=== PATIENT | female | born 1960 | race Two or more races ===

== ENCOUNTER 2020-08-25 11:37 | Inpatient (IN) | payer MEDICAID, OTHER ==
[~2020-08-25] VITALS: Ht 160 cm; Wt 71.6 kg
[2020-08-25] VITALS (31 sets, daily range): BP systolic 97–118; BP diastolic 60–77
[2020-08-25] MEDS: PROPOFOL 100 ML IV SCH ×2 (11:56→20:53)
[2020-08-25] MEDS ORDERED: PROPOFOL 100 ML IV ONE (11:56)
[2020-08-25 12:13] LABS: Basophils # (auto) 0.1 10 ^3/uL (0-0.2); Hemoglobin 12.2 g/dL (12.2-16.2); Neutrophils # (auto) 6.2 10 ^3/uL (1.6-8.6); Nucleated Red Blood Cells % 0.1 %
[2020-08-25 12:15] LABS: Eosinophils # (auto) 0.2 10 ^3/uL (0-0.8); Eosinophils % (auto) 1.9 % (0.0-7.0); Hematocrit 39.6 % (36.0-46.0); Lymphocytes # (auto) 5.6 10 ^3/uL (0.4-5.4); Lymphocytes % (auto) 44.7 % (10.0-50.0); Mean Corpuscular Hemoglobin 28.7 pg (28.0-32.0); Mean Corpuscular Hgb Conc. 30.7 g/dL (32.0-36.0); Mean Corpuscular Volume 93.5 fL (80.0-100.0); Monocytes # (auto) 0.4 10 ^3/uL (0-1.3); Monocytes % (auto) 3.3 % (0.0-12.0); Neutrophils % (auto) 49.1 % (37.0-80.0); Platelet Count (auto) 399 10^3/uL (140-450); Red Blood Cells 4.23 10^6/uL (4.0-5.20); White Blood Cell 12.6 10^3/uL (4.4-10.8)
[2020-08-25] MEDS ORDERED: LORazepam 2MG/ML-1ML VIAL IV ONE (12:15)
[2020-08-25 12:29] LABS: INR 1.07 (0.9-1.15); Partial Thromboplastin Time 28.9 sec (23.0-31.2)
[2020-08-25 12:32] LABS: Urine Bacteria FEW /hpf (None Seen); Urine Blood 1+ /uL (Negative); Urine Mucus FEW (None Seen); Urine Specific Gravity 1.019 (1.001-1.035); Urine WBC 6 /hpf (0 - 5)
[2020-08-25] MEDS ORDERED: MIDAZOLAM DRIP 50 mg/50mL 50 ML IV ONE (12:34)
[2020-08-25] MEDS ORDERED: AZITHROMYCIN 500MG/ 250ML 250 ML IV ONE (12:45)
[2020-08-25 12:47] LABS: Albumin 2.6 g/dL (3.4-5.0); Calcium 8.1 mg/dL (8.5-10.1); Magnesium 2.7 mg/dL (1.6-2.6); Potassium 3.8 mmol/L (3.5-5.1)
[2020-08-25 12:53] LABS: BUN/Creatinine Ratio 10.7; Bilirubin, Total 0.2 mg/dL (0.2-1.0); CRP High Sensitivity 0.5 mg/dL (< 0.3); Total Protein 6.2 g/dL (6.4-8.2)
[2020-08-25 13:02] LABS: Lactic Acid w/Reflex 10.3 mmol/L (0.4-2.0)
[2020-08-25] MEDS ORDERED: IOHEXOL 350 MG/ML 100ML IJ ONE (13:02)
[2020-08-25] MEDS: MIDAZOLAM DRIP 50 mg/50mL 50 ML IV SCH ×2 (13:04→20:52)
[2020-08-25] MEDS ORDERED: NOREPINEPHRINE 8 MG/250ML KIT 250 ML IV SCH (13:15)
[2020-08-25] MEDS ORDERED: NITROGLYCERIN 0.4 MG SL TAB SL PRN (13:15)
[2020-08-25] MEDS ORDERED: PIPERACILLIN-TAZOB 3.375GM 100 ML IV ONE (13:15)
[2020-08-25] MEDS ORDERED: MORPHINE SULFATE 4 MG/ML SYR/VIAL IV PRN (13:15)
[2020-08-25] MEDS ORDERED: VANCOMYCIN PER PHARMACY 0 MG IV SCH (13:15)
[2020-08-25] MEDS ORDERED: LACTATED RINGER'S 1,000 ML IV ONE (13:15)
[2020-08-25] MEDS ORDERED: MORPHINE SULF INJ 2 MG/ML SYRINGE 1ML IV PRN (13:15)
[2020-08-25] MEDS ORDERED: ENOXAPARIN SOD 100 MG/1 ML SYRINGE SC ONE ×2 (14:00→14:15)
[2020-08-25] MEDS: NOREPINEPHRINE 8 MG/250ML KIT 250 ML IV SCH (14:00)
[2020-08-25] MEDS ORDERED: DEXTROSE (50%) 50ML SYRG IV PRN (14:00)
--- NOTE | 2020-08-25 14:20 | NUR ---
Respiratory note: RETRACTED ETT 3CM, FROM 24 @ THE LIP LINE, TO 21 AT THE LIP LINE. PER DR FRANCISCA HERNANDEZ. RN AWARE.
[2020-08-25] MEDS ORDERED: methylPREDNISolone SOD SUCC 125 MG/2 ML VL IV ONE (14:30)
[2020-08-25] MEDS ORDERED: VANCOMYCIN 1GM/250ML 250 ML IV ONE (15:30)
--- NOTE | 2020-08-25 17:00 | NUR ---
Pt being admitted to ICU JORGE MUNOZ admitted to ICU via gurney on melter helper, and portable 02. Patient transferred to bed, connected to ICU monitoring and oxygen, and weighed by bed scale. Patient oriented to ZBIGNIEW TANNER, primary RN, unit, room, bed, and unit policies regarding patient care and visiting hours. UPDATED NEICE ON PATIENTS CURRENT STATUS.
[2020-08-25] MEDS: ACCU-CHEK COMFORT CURVE STRIP VI SCH ×2 (17:11→23:41)
[2020-08-25] MEDS: InsuLIN REG 1unit/0.01ml Soln (100units/ml) SC SCH ×2 (17:11→23:42)
[2020-08-25] MEDS: FUROSEMIDE 20 MG/2 ML VIAL IV SCH (17:14)
[2020-08-25] MEDS: PIPERACILLIN-TAZOB 3.375GM 100 ML IV SCH ×2 (17:14→23:30)
--- NOTE | 2020-08-25 18:56 | NUR ---
UNABLE TO COMPLETE ADMISSION IN IT'S ENTIRETY DUE TO PATIENT BEING ON A VENTILATOR AND HAVING NO CLOSE FAMILY/CHILDREN. PATIENT DOES HAVE A NIECE WHO DOESN'T KNOW 100% OF FAMILIAL DETAILS.
--- NOTE | 2020-08-25 19:05 | NUR ---
Report received from JORGE Guillermo. Propofol drip infusing at 9.861 mcg/kg/min; Versed drip infusing at 13 mg/hr. Patient intubated with ETT 7.5 at 21 CM at L/L to vent. Vent settings: AC 18 Vt 450 FiO2 50% PEEP 5. Will continue with POC; and, will contine to monitor VS, RASS -3, and clinical status.
--- NOTE | 2020-08-25 20:00 | NUR ---
UDS & MRSA swab collected and specimens sent to lab.
[2020-08-25 20:47] LABS: Urine Bacteria FEW /hpf (None Seen); Urine Blood Negative /uL (Negative); Urine Mucus FEW (None Seen); Urine Specific Gravity 1.016 (1.001-1.035); Urine WBC 2 /hpf (0 - 5)
--- NOTE | 2020-08-25 20:50 | NUR ---
Versed drip changed to new bag and resumed at 13 mg/hr, Versed bottle bar code did not scan; also, Propofol drip changed to new bottle and resumed at 9.861 mcg/kg/min.
[2020-08-25 21:03] LABS: Amphetamine Screen, Urine POSITIVE (NEGATIVE); Barbiturate Scree,Urine NEGATIVE (NEGATIVE); Benzodiazephine Screen, Urine POSITIVE (NEGATIVE); Cocaine Screen, Urine NEGATIVE (NEGATIVE); Phencyclidine Screen, Urine NEGATIVE (NEGATIVE)
[2020-08-25 21:10] LABS: Cannabinoid Screen, Urine NEGATIVE (NEGATIVE); Opiate Scree,Urine NEGATIVE (NEGATIVE)
[2020-08-25] MEDS: methylPREDNISolone SOD SUCC 40 MG/ML VL IV SCH (22:04)
[2020-08-25] MEDS: FAMOTIDINE (10MG/ML) 2ML VL IV SCH (22:04)
[2020-08-25] MEDS: ENOXAPARIN SOD 100 MG/1 ML SYRINGE SC SCH (22:05)
--- NOTE | 2020-08-25 22:05 | NUR ---
Rtn scheduled medications given. See e-MAR.
--- NOTE | 2020-08-25 23:30 | NUR ---
Rtn scheduled medications given. See e-MAR. Signed: 08/25/20 at 2331 by Ritesh Ochoa RN
--- NOTE | 2020-08-25 23:42 | NUR ---
Accucheck 122 mg/dl. No coverage indicated.
[2020-08-26] VITALS (104 sets, daily range): BP systolic 88–124; BP diastolic 52–74
--- NOTE | 2020-08-26 | NUR ---
Versed drip increase to 15 mg/hr due to patient over-riding vent 19-22 BPM; also, patient attempting to open eyes.
--- NOTE | 2020-08-26 00:05 | NUR ---
RT decrease FiO2 to 30%.
--- NOTE | 2020-08-26 01:10 | NUR ---
Propofol drip increase to 15.85 mcg/kg/min due to patient over-riding ventilator 20-22 BPM.
[2020-08-26] MEDS: MIDAZOLAM DRIP 50 mg/50mL 50 ML IV SCH ×3 (01:26→16:35)
--- NOTE | 2020-08-26 01:26 | NUR ---
Versed drip changed to new bag and resumed infusion to 15 mg/hr.
--- NOTE | 2020-08-26 01:40 | NUR ---
Propofol drip increase to 20.84 mcg/kg/min due to patient RR 28-30 BPM.
--- NOTE | 2020-08-26 02:44 | NUR ---
Traffic Or System Dispatcher at bedside. AM Labs collected and specimens sent to lab.
--- NOTE | 2020-08-26 03:10 | NUR ---
Patient incontinent with moderate semi-soft brown stool. Patient given bed bath and linen change.
[2020-08-26] MEDS: methylPREDNISolone SOD SUCC 40 MG/ML VL IV SCH (05:32)
[2020-08-26] MEDS: PIPERACILLIN-TAZOB 3.375GM 100 ML IV SCH ×4 (05:32→23:33)
[2020-08-26] MEDS: FUROSEMIDE 20 MG/2 ML VIAL IV SCH ×2 (05:33→17:24)
--- NOTE | 2020-08-26 05:33 | NUR ---
Rtn scheduled medications given. See e-MAR.
[2020-08-26] MEDS: InsuLIN REG 1unit/0.01ml Soln (100units/ml) SC SCH ×4 (05:43→23:54)
[2020-08-26] MEDS: ACCU-CHEK COMFORT CURVE STRIP VI SCH ×4 (05:43→23:54)
--- NOTE | 2020-08-26 05:44 | NUR ---
Accucheck 122 mg/dl. No coverage indicated.
--- NOTE | 2020-08-26 05:50 | NUR ---
Versed drip changed to new bag.
[2020-08-26 09:27] LABS: Basophils # (auto) 0 10 ^3/uL (0-0.2); Basophils % (auto) 0.1 % (0.0-2.0); Eosinophils # (auto) 0 10 ^3/uL (0-0.8); Hematocrit 36.5 % (36.0-46.0); Hemoglobin 11.8 g/dL (12.2-16.2); Lymphocytes # (auto) 0.6 10 ^3/uL (0.4-5.4); Mean Corpuscular Hemoglobin 28.6 pg (28.0-32.0); Mean Corpuscular Hgb Conc. 32.4 g/dL (32.0-36.0); Mean Corpuscular Volume 88.3 fL (80.0-100.0); Monocytes # (auto) 0.2 10 ^3/uL (0-1.3); Monocytes % (auto) 1.1 % (0.0-12.0); Neutrophils # (auto) 13.9 10 ^3/uL (1.6-8.6); Neutrophils % (auto) 94.8 % (37.0-80.0); Platelet Count (auto) 420 10^3/uL (140-450); Red Blood Cells 4.13 10^6/uL (4.0-5.20); Red Cell Distribution Width 15.3 % (11.8-14.3); White Blood Cell 14.6 10^3/uL (4.4-10.8)
--- NOTE | 2020-08-26 09:32 | NUR ---
MEDICAL LABORATORY SCIENTIST AT BEDSIDE.
[2020-08-26 09:40] LABS: Calcium 8.3 mg/dL (8.5-10.1); Potassium 3.6 mmol/L (3.5-5.1)
[2020-08-26 09:43] LABS: BUN/Creatinine Ratio 16.2; Bilirubin, Total 0.5 mg/dL (0.2-1.0); Total Protein 6.6 g/dL (6.4-8.2)
[2020-08-26] MEDS ORDERED: VANCOMYCIN 1GM/250ML 250 ML IV SCH (10:00)
[2020-08-26] MEDS: ENOXAPARIN SOD 100 MG/1 ML SYRINGE SC SCH ×2 (10:50→21:44)
--- NOTE | 2020-08-26 12:00 | NUR ---
WOUND CARE NOTE: IN TO SEE PATIENT AT THIS TIME PER WOUND CARE CONSULT REQUEST. PATIENT ADMITTED TO [facility] WITH DIAGNOSIS OF S/P CARDIAC ARREST. SHE IS INTUBATED, SEDATED IN [place]. PATIENT RESTING ON ICU [facility] BED. PATIENT NOTED UPON ADMIT, TO HAVE MULTIPLE SKIN INTEGRITY ISSUES. WOUND PHOTOS TAKEN BY BEDSIDE NURSE AT THAT TIME, AND AGAIN AT THIS TIME BY WOUND CARE TEAM. CURRENT OMKAR SCORE IS 10. PATIENT NOTED TO HAVE MULTIPLE WOUNDS, INCLUDING 3 SMALL BLOOD FILLED BLISTERS TO THE LEFT EAR, RIGHT LOWER CHEEK INTACT ABRASION, LESION/GROWTH TO FOREHEAD, MULTIPLE INTACT COLLAGEN SCARS TO BACK, ABDOMEN, BLE. NO OPEN/DRAINING WOUNDS NOTED, NO DRESSINGS NEEDED. RECOMMEND: FREQUENT TURN SCHEDULE Q 2 HOURS, PRN CONDITION PERMITS, WITH PRESSURE REDISTRIBUTION USING PILLOWS/WEDGES, BID/PRN APPLICATION WITH MOISTURE BARRIER CREAM, OPTIFOAM GENTLE SACRAL DRESSING, DIETARY CONSULT, SKIN/WOUND CARE PLAN, CONTINUED MONITORING BY WOUND CARE TEAM. Addendum: 08/26/20 at 1809 by Nelsy Hidalgo RN Amended: Links added.
--- NOTE | 2020-08-26 12:12 | NUR ---
Nutrition Assessment/Consult Notes Please refer to link for full assessment notes. Est Energy needs: 1636-3898 kcals (20-23 kcal/kgBW) Est Protein needs: 59-74 gms/day (0.8-1.0 gm/kgBW) Will continue to monitor and reassess prn. Addendum: 08/26/20 at [address] Amended: Links added.
[2020-08-26] MEDS: NOREPINEPHRINE 8 MG/250ML KIT 250 ML IV SCH (13:13)
[2020-08-26 15:37] LABS: Basophils # (auto) 0 10 ^3/uL (0-0.2); Basophils % (auto) 0.1 % (0.0-2.0); Eosinophils # (auto) 0 10 ^3/uL (0-0.8); Hematocrit 37.4 % (36.0-46.0); Hemoglobin 12.1 g/dL (12.2-16.2); Lymphocytes % (auto) 5.5 % (10.0-50.0); Mean Corpuscular Hemoglobin 28.7 pg (28.0-32.0); Mean Corpuscular Hgb Conc. 32.4 g/dL (32.0-36.0); Mean Corpuscular Volume 88.6 fL (80.0-100.0); Monocytes # (auto) 0.6 10 ^3/uL (0-1.3); Monocytes % (auto) 3.3 % (0.0-12.0); Neutrophils % (auto) 91.1 % (37.0-80.0); Platelet Count (auto) 395 10^3/uL (140-450); Red Blood Cells 4.22 10^6/uL (4.0-5.20); Red Cell Distribution Width 15.7 % (11.8-14.3); White Blood Cell 18.7 10^3/uL (4.4-10.8)
[2020-08-26] MEDS: PROPOFOL 100 ML IV SCH (16:36)
--- NOTE | 2020-08-26 18:14 | NUR ---
Respiratory note: RECEIVED PT ON VENT([id number]). PT IS ETT TO VENT. VENT PLUGGED INTO RED OUTLET AND O2 SOURCE ALARMS ARE SET AND AUDIBLE. AMBU BAG AND MASK AT BEDSIDE. BS ARE FINE COURSE SXD VIA ETT FOR MODERATE THICK GARCIA/SCANT BLOOD TINGE. NO GAG NOTED WITH SX. ETT MOVED FROM LEFT TO CENTER WITHOUT INCIDENT. ETT CONFIRMED TO BE A 7.0 SECURED AT 21CMS AT THE LIP. PTS CURRENT TEMP READS 99.1F. RT NAME AND PAGER ASSIGNMENT WRITTEN ON PTS ROOM BOARD. WILL CONTINUE TO MONITOR Q2H VENT CHECKS AND PRN.
--- NOTE | 2020-08-26 19:07 | NUR ---
Report received from JORGE Murray. Patient intubate with ETT 7.0 to vent. Vent settings: AC 18 Vt 450 FiO2 30% PEEP 5. IVF: Versed drip at 5 mg/hr. Diprivan drip at 9.996 mcg/kg/min. Will continue with POC; and, will continue to monitor VS, RASS -3, and clinical status.
[2020-08-26] MEDS: Jevity 1.2 Cal/Fiber 1 Liter GT SCH (20:00)
--- NOTE | 2020-08-26 20:00 | NUR ---
Tube Feedings started. Jevity 1.2 Christiano started at 20 ml/hr.
--- NOTE | 2020-08-26 20:20 | NUR ---
Respiratory note: AT BEDSIDE FOR ROUTINE VENT CHECK, CURRENT TEMP IS 99.7F. NO SX DONE AT THIS TIME. NO CHANGES MADE WILL CONTINUE TO MONITOR.
[2020-08-26] MEDS: FAMOTIDINE (10MG/ML) 2ML VL IV SCH (21:44)
[2020-08-26] MEDS: LINEZOLID 600MG/300ML 300 ML IV SCH (21:44)
--- NOTE | 2020-08-26 21:45 | NUR ---
Rtn scheduled medications given. See e-MAR.
--- NOTE | 2020-08-26 22:05 | NUR ---
Respiratory note: AT BEDSIDE FOR ROUTINE VENT CHECK, CURRENT TEMP IS 100.2F. NO SX DONE AT THIS TIME. NO CHANGES MADE WILL CONTINUE TO MONITOR.
--- NOTE | 2020-08-26 23:34 | NUR ---
Rtn scheduled medication given. See e-MaR.
--- NOTE | 2020-08-26 23:49 | NUR ---
Accucheck 124 mg/dl. No coverage required.
[2020-08-27] VITALS (67 sets, daily range): BP systolic 115–149; BP diastolic 57–91
--- NOTE | 2020-08-27 00:28 | NUR ---
Respiratory note: AT BEDSIDE FOR ROUTINE VENT CHECK, CURRENT TEMP IS 100.2F. BS ARE COURSE BILATERALLY, SXD VIA ETT FOR MODERATE AMOUNT OF THICK GARCIA/ PINK TINGED. NO CHANGES MADE WILL CONTINUE TO MONITOR.
--- NOTE | 2020-08-27 00:50 | NUR ---
Temperature 100.6 and HR 142. Cooling measures applied. Ice packs applied to Nuchal, Bilateral Axillary, and Groin areas. Addendum: 08/27/20 at 0053 by Ritesh Ochoa RN Skin hot too touch.
[2020-08-27] MEDS: ACETAMINOPHEN 325 MG TAB PO PRN ×4 (01:54→22:20)
--- NOTE | 2020-08-27 01:55 | NUR ---
Patient medicated with Tylenol 650 mg via NGT for Temperature 100.6.
--- NOTE | 2020-08-27 02:00 | NUR ---
Tube feeding off for CPAP trials this am.
--- NOTE | 2020-08-27 02:02 | NUR ---
Respiratory note: AT BEDSIDE FOR ROUTINE VENT CHECK, CURRENT TEMP IS 100.4F. COOLING MEASURES BEING TAKEN JORGE MEDINA AT BEDSIDE AND COMMUNICATED TYLENOL WAS GIVEN. NO CHANGES MADE WILL CONTINUE TO MONITOR.
--- NOTE | 2020-08-27 02:38 | NUR ---
Tooth Cutter Contact Wheel at bedside. AM Labs collected and specimens sent to lab.
--- NOTE | 2020-08-27 03:38 | NUR ---
Patient HR 1207-133, RR 26-28. Patient medicated with Morphine 2 mg IVP.
[2020-08-27 03:56] LABS: Basophils # (auto) 0 10 ^3/uL (0-0.2); Basophils % (auto) 0.1 % (0.0-2.0); Eosinophils # (auto) 0 10 ^3/uL (0-0.8); Hematocrit 36.4 % (36.0-46.0); Hemoglobin 11.8 g/dL (12.2-16.2); Lymphocytes # (auto) 1.5 10 ^3/uL (0.4-5.4); Lymphocytes % (auto) 8.6 % (10.0-50.0); Mean Corpuscular Hemoglobin 28.4 pg (28.0-32.0); Mean Corpuscular Hgb Conc. 32.3 g/dL (32.0-36.0); Monocytes % (auto) 5.5 % (0.0-12.0); Neutrophils # (auto) 15.3 10 ^3/uL (1.6-8.6); Neutrophils % (auto) 85.8 % (37.0-80.0); Nucleated Red Blood Cells % 0.1 %; Platelet Count (auto) 409 10^3/uL (140-450); Red Blood Cells 4.13 10^6/uL (4.0-5.20); Red Cell Distribution Width 15.5 % (11.8-14.3); White Blood Cell 17.9 10^3/uL (4.4-10.8)
[2020-08-27 04:07] LABS: Calcium 8.7 mg/dL (8.5-10.1); Potassium 3.7 mmol/L (3.5-5.1)
--- NOTE | 2020-08-27 05:24 | NUR ---
Patient bathed with linen change.
[2020-08-27] MEDS: FUROSEMIDE 20 MG/2 ML VIAL IV SCH ×2 (05:41→16:54)
[2020-08-27] MEDS: PIPERACILLIN-TAZOB 3.375GM 100 ML IV SCH ×4 (05:41→23:06)
--- NOTE | 2020-08-27 05:42 | NUR ---
Rtn scheduled medication given. See e-MAR.
[2020-08-27] MEDS: InsuLIN REG 1unit/0.01ml Soln (100units/ml) SC SCH ×4 (06:00→23:06)
[2020-08-27] MEDS: ACCU-CHEK COMFORT CURVE STRIP VI SCH ×4 (06:00→23:06)
--- NOTE | 2020-08-27 06:01 | NUR ---
Accucheck 78 mg/dl. No coverage indicated.
[2020-08-27] MEDS: MIDAZOLAM DRIP 50 mg/50mL 50 ML IV SCH (06:33)
--- NOTE | 2020-08-27 06:34 | NUR ---
Versed dripbag changed tonew bag.
--- NOTE | 2020-08-27 06:53 | NUR ---
Versed drip decrease to 3 mg/hr. Will attempt to titrate sedation drips off for CPAP trials.
--- NOTE | 2020-08-27 07:45 | NUR ---
Cooling Measures applied. Patient currently has temp of 100.4 , cooling measures in place.
--- NOTE | 2020-08-27 08:00 | NUR ---
COMPLETED LINEN CHANGE PERFORMED. SKIN CARE PERFORMED. PT TOLERATED WELL. SEE PHYSICAL ASSESSMENT. TUBE FEEDINGS REMAIN ON HOLD FOR POSSIBLE CPAP TRIAL. Addendum: 08/27/20 at 1154 by Terri Whittaker RN ABNORMALITIES SEEN TO VAGINAL AREA. POSSIBLY PROLAPSED UTERUS OR BLADDER. AWAITING MD TO ROUND TO DETERMINE ABNORMALITY.
[2020-08-27] MEDS: LINEZOLID 600MG/300ML 300 ML IV SCH ×2 (09:31→21:00)
[2020-08-27] MEDS: ENOXAPARIN SOD 100 MG/1 ML SYRINGE SC SCH ×2 (09:31→21:02)
--- NOTE | 2020-08-27 11:00 | NUR ---
Family updated on pt status Family of JORGE MUNOZ updated on patient's status and condition. All questions and concerns addressed. Coni Kraus verbalized understanding. Nayana stating patient is homeless but at times visits Nayana for a few nights a week to shower and then shortly after leaves. Nayana stating patient does not have a primary doctor that she follows up with. Nayana verbalized the last time she was discharged from [place] hospital [place], patient was d.c and arranged to stay with Nayana but shortly after patient left to a friends house. Questions and concerns addressed.
--- NOTE | 2020-08-27 11:37 | NUR ---
ALL SEDATION OFF AT 0800./ 08/27. POSSIBLE CPAP TRIAL. PATIENT WITHDRAWS TO PAIN, ONLY OPENS EYES TO STIMULI WITH ONLY SCLERA VISUALIZED. NOT TRACKING. NO FOLLOWING COMMANDS. Addendum: 08/27/20 at 1140 by Terri Whittaker RN Amended: Links added.
--- NOTE | 2020-08-27 12:00 | NUR ---
rounds Dr. Kent updated on patients status. Md aware patient is off sedation. If patient does not wake up today neuro consult to be placed. See md orders. Addendum: 08/27/20 at 1518 by Terri Whittaker RN MD aware of abnormality noted during pericare. Md stating it is likely prolapsed uterus. No further orders.
[2020-08-27] MEDS: NOREPINEPHRINE 8 MG/250ML KIT 250 ML IV SCH (13:30)
[2020-08-27] MEDS: DexMEDEtomidine 400 MCG in D5W 5% 96 ML IV SCH (13:30)
[2020-08-27] MEDS: IPRATROPIUM BROM 0.5 MG/2.5ML INH SOL NEB SCH ×3 (13:45→22:46)
[2020-08-27] MEDS: ALBUTEROL SULF 2.5 MG/0.5ML(0.5%) NEB SOLN NEB SCH ×3 (13:45→22:46)
--- NOTE | 2020-08-27 14:00 | NUR ---
Nutrition Tube feedings restarted at 20ml/hr as patient is not responding at this time for cpap trial to be initiated. Aspiration precautions in place.
--- NOTE | 2020-08-27 15:48 | NUR ---
NO CPAP TRIAL ATTEMPTED DUE TO PATIENT NOT BEING ABLE TO FOLLOW COMMANDS. WILL NOTIFY AND RN.
--- NOTE | 2020-08-27 16:07 | NUR ---
Cooling Measures applied. Patient currently has temp of 101.3 , cooling measures in place, prn Tylenol given.
[2020-08-27] MEDS: Jevity 1.2 Cal/Fiber 1 Liter GT SCH (16:17)
--- NOTE | 2020-08-27 16:56 | NUR ---
TUBE FEEDINGS TF TOLERATED WELL. 5ML OF GASTRIC RESIDUAL. RATE INCREASED TO 35ML/HR. ASPIRATION PRECAUTIONS REMAIN IN PLACE.
--- NOTE | 2020-08-27 18:55 | NUR ---
Respiratory note: RECEIVED PT ON VENT([id number]). PT IS ETT TO VENT. VENT PLUGGED INTO RED OUTLET AND O2 SOURCE ALARMS ARE SET AND AUDIBLE. AMBU BAG AND MASK AT BEDSIDE. BS ARE FINE COURSE SXD VIA ETT FOR SMALL THICK GARCIA. GAG INTACT. MED NEB TX GIVEN INLINE WITHOUT ADVERSE REACTION NOTED. ETT CONFIRMED TO BE A 7.0 SECURED AT 21CMS AT THE LIP. PTS CURRENT TEMP READS 100.6F. RT NAME AND PAGER ASSIGNMENT WRITTEN ON PTS ROOM BOARD. WILL CONTINUE TO MONITOR Q2H VENT CHECKS AND PRN.
--- NOTE | 2020-08-27 19:16 | NUR ---
REPORT GIVEN TO NOC SHIFT UPDATED ON PLAN OF CARE. PATIENTS VSS. TOLERATING VENTILATOR WELL.
--- NOTE | 2020-08-27 20:00 | NUR ---
SHIFT OPENING NOTE RECEIVED PATIENT INTUBATED. SEDATION OFF. PUPILS 3 AND SLUGGISH. VENT SETTINGS 7.0, 21 AT THE LIP AC 18, TV 450, FI02 30%, PEEP 5 POX 96%. RIGHT NG TUBE INFUSING JEVITY AT 35 ML/H. 10 ML RESIDUALS NOTED. (GOAL IS 55 ML/H). ANDRADE CATH DRAINING CLOUDY YELLOW URINE TO GRAVITY. PHYSICAL ASSESSMENT COMPLETED, SEE INTERVENTIONS. WILL CLOSELY MONITOR.
--- NOTE | 2020-08-27 20:30 | NUR ---
Respiratory note: AT BEDSIDE FOR ROUTINE VENT CHECK. PTS CURRENT TEMP READS 100.9F. NO CHANGES MADE WILL CONTINUE TO MONITOR.
[2020-08-27] MEDS: FAMOTIDINE (10MG/ML) 2ML VL IV SCH (21:02)
--- NOTE | 2020-08-27 22:40 | NUR ---
COOLING MEASURES REAPPLIED RECTAL TEMP 100.9. TYLENOL ADMINISTERED AND ICE PACKS REAPPLIED UNDER ARMPITS AND WET COLD CLOTH OF FOREHEAD.
--- NOTE | 2020-08-27 22:45 | NUR ---
TRAINING EXECUTIVE AT BEDSIDE
--- NOTE | 2020-08-27 23:20 | NUR ---
REPORT GIVEN TO JAUN Dee RN WILL TAKE OVER CARE OF PATIENT.
[2020-08-28] VITALS (92 sets, daily range): BP systolic 130–183; BP diastolic 71–108
--- NOTE | 2020-08-28 00:30 | NUR ---
PT. ARRIVED IN ICU BED #101; PT. NOTED TO HAVE VOMITUS IN BED AND ON GOWN; LT. UPPER CHEST NOTED TO BE LARGER/SWOLLEN MORE THAN RT. UPPER CHEST AND WILL OBTAIN CXR NOW TO R/O PNEUMOTHORAX; PT. IS S/P CPR FROM 08/25/20; PLACED PT. ON BEDSIDE MONITOR; PT. INTUBATED/VENTILATED-OFF SEDATION SINCE 0800 ON 08/27/20-AWAITING FOR PT. TO WAKE UP; PT. IS NOTED TO HAVE DOLL EYE PRESENTATION TO BOTH EYES; PT. DOES HAVE COUGH AND GAG INTACT; TUBE FEED RESIDUAL NOTED IN OGT WITH 60ML RESIDUAL AND PLACED ON LOW-WALL INTERMITTENT SUCTION; PLACED MITTENS ON HANDS A SAFETY PRECAUTION; SEE INTERVENTIONS FOR ASSESSMENT; VS STABLE AT THIS TIME; PT. NOT ON ANY DRIPS-PIV X2 BOTH PATENT AND SALINE LOCKED; WILL CONT. TO MONITOR.
--- NOTE | 2020-08-28 00:38 | NUR ---
SPOKE WITH NEWS GATHERING TECHNICIAN CHRIS ABOUT STAT PLAN COORDINATOR SAID HE WILL BE HERE SOON
[2020-08-28] MEDS: ALBUTEROL SULF 2.5 MG/0.5ML(0.5%) NEB SOLN NEB SCH ×7 (02:00→22:00)
[2020-08-28] MEDS: IPRATROPIUM BROM 0.5 MG/2.5ML INH SOL NEB SCH ×6 (02:37→22:00)
--- NOTE | 2020-08-28 02:37 | NUR ---
Respiratory note: AT BEDSIDE FOR ROUTINE VENT CHECK. GREEN SIZE 8.0 OPA PLACED IN ORAL CAVITY DUE TO PT BITING ON TONGUE. RN JAUN AT BEDSIDE AND AWARE OF PLACEMENT. PTS HR INCREASED AT 140S, ALBUTEROL HELD. ATROVENT ADMINISTERED ONLY. MED NEB TX GIVEN INLINE WITHOUT ADVERSE REACTION NOTED. NO CHANGES MADE WILL CONTINUE TO MONITOR.
--- NOTE | 2020-08-28 02:38 | NUR ---
ALBUTEROL HELD DUE TO INCREASED HR. 140S. JORGE MARIE.
[2020-08-28 04:26] LABS: Basophils # (auto) 0 10 ^3/uL (0-0.2); Basophils % (auto) 0.2 % (0.0-2.0); Eosinophils # (auto) 0 10 ^3/uL (0-0.8); Eosinophils % (auto) 0.1 % (0.0-7.0); Hematocrit 38.9 % (36.0-46.0); Hemoglobin 12.7 g/dL (12.2-16.2); Lymphocytes % (auto) 14.1 % (10.0-50.0); Mean Corpuscular Hemoglobin 28.6 pg (28.0-32.0); Mean Corpuscular Hgb Conc. 32.8 g/dL (32.0-36.0); Mean Corpuscular Volume 87.3 fL (80.0-100.0); Monocytes % (auto) 6.9 % (0.0-12.0); Neutrophils # (auto) 11.3 10 ^3/uL (1.6-8.6); Neutrophils % (auto) 78.7 % (37.0-80.0); Platelet Count (auto) 439 10^3/uL (140-450); Red Blood Cells 4.45 10^6/uL (4.0-5.20); Red Cell Distribution Width 15.6 % (11.8-14.3); White Blood Cell 14.4 10^3/uL (4.4-10.8)
[2020-08-28 04:33] LABS: BUN/Creatinine Ratio 14.5; Calcium 9.1 mg/dL (8.5-10.1)
[2020-08-28 04:35] LABS: Potassium 2.9 mmol/L (3.5-5.1)
[2020-08-28] MEDS ORDERED: POTASSIUM CHL 20MEQ/100ML 100 ML IV ONE (05:27)
[2020-08-28] MEDS: POTASSIUM CHL 20MEQ/100ML 100 ML IV SCH ×3 (05:30→09:20)
[2020-08-28] MEDS: PIPERACILLIN-TAZOB 3.375GM 100 ML IV SCH ×3 (06:00→17:45)
[2020-08-28] MEDS: FUROSEMIDE 20 MG/2 ML VIAL IV SCH ×2 (06:00→17:46)
[2020-08-28] MEDS: InsuLIN REG 1unit/0.01ml Soln (100units/ml) SC SCH ×3 (06:00→18:00)
[2020-08-28] MEDS: ACCU-CHEK COMFORT CURVE STRIP VI SCH ×3 (06:00→17:46)
[2020-08-28] MEDS ORDERED: MAGNESIUM SULFATE 1GM/100ML 100 ML IV ONE ×2 (07:00→07:06)
--- NOTE | 2020-08-28 07:15 | NUR ---
Assumed care of pt., report received per JORGE Rodríguez. pt. noted in SVT/ST 160's, aware per NOC RN. Noted vented and tolerating, will cont.to monitor for any changes, assessment ongoing.
[2020-08-28] MEDS: ENOXAPARIN SOD 100 MG/1 ML SYRINGE SC SCH ×2 (09:24→22:16)
[2020-08-28] MEDS: LINEZOLID 600MG/300ML 300 ML IV SCH ×2 (09:24→22:16)
--- NOTE | 2020-08-28 10:46 | NUR ---
Nutrition Followup Notes Wt: 70.4 kg Pt was intubated sedated with no family by bedside. pt is currently NPO on EN feeds with Jevity 1.2 @ 35 ml/hr providing 1008 kcals and 46 gm proteins. pt with inadequate EN support Est Energy needs: 5294-7463 kcals (20-23 kcal/kgBW), Est Protein needs: 59-74 gms/day (0.8-1.0 gm/kgBW). Will continue to monitor and reassess prn. LABS: CREAT 1.17 H ALB 3.0 L, GLU 131 H GI: Pt with no BM today Last BM unknown per RN doc BS: 11 high risk. Refer to wound assessment report for full details. PES: 1) Increased nutrient needs aeb pt is sedated, intubated, NPO r/t pt with no PO intake 2) Overweight aeb 141% IBW and BMI of 28.7 kg/m2 r/t energy intake in excess of energy needs Comments: will continue to monitor NPO status, EN tolerance skin status. F/u high 2-3 days Rec: 1) Advance EN support with Jevity 1.2 @ 55ml/hr goal rate per MD approval. 2) Gradually advance pt to an oral Cardiac 2gNa,lowfat,lowchol diet when feasible per MD approval. 3) Continue current plan of care
--- NOTE | 2020-08-28 11:50 | NUR ---
RT Transport Note: Patient transported to RADIOLOGY FOR HEAD CT with JORGE DEWITT. Patient transported on color television console monitor and transport vent with alarms set and audible. Patient returned to room and placed back on ventilator with previous settings. Transport completed without incident.
[2020-08-28] MEDS: PROPOFOL 100 ML IV SCH (12:15)
--- NOTE | 2020-08-28 12:23 | NUR ---
WOUND CARE NOTE: WOUND CARE IN TO SEE PATIENT FOR NEW CONCERN. BEDSIDE NURSE NOTED PATIENT TO HAVE A PROLAPSED UTERUS. PHOTOGRAPH TAKEN FOR REFERENCE. UTERUS COVERED WITH SALINE SOAKED STERILE GAUZE 4x4s TO KEEP TISSUE MOIST. RECOMMEND: BUSINESS APPLICATIONS SPECIALIST CONSULT. FREQUENT DRESSING CHANGE TO PROLAPSE WITH SALINE SOAKED STERILE GAUZE 4x4s TO KEEP TISSUE MOIST. CONTINUED MONITORING BY WOUND CARE TEAM. Addendum: 08/28/20 at 1342 by LUIZ DELGADO RN RN Amended: Links added.
[2020-08-28] MEDS: MIDAZOLAM DRIP 50 mg/50mL 50 ML IV SCH (12:45)
[2020-08-28] MEDS: DexMEDEtomidine 400 MCG in D5W 5% 96 ML IV SCH (13:30)
[2020-08-28] MEDS: NOREPINEPHRINE 8 MG/250ML KIT 250 ML IV SCH (15:34)
--- NOTE | 2020-08-28 18:15 | NUR ---
Respiratory note: RECEIVED PT ON VENT ([id number]). VENT CONNECTED TO RED OUTLET AND O2 SOURCE ALARMS ARE SET AND AUDIBLE AMBU BAG AND MASK AT BED. MED NEB TX GIVEN INLINE WITHOUT ADVERSE REACTION NOTED JORGE DEWITT AT BEDSIDE PERFORMING CARES. RT NAME AND PAGER ASSIGNMENT WRITE ON PTS ROOM BOARD WILL CONTINUE TO MONITOR.
--- NOTE | 2020-08-28 19:10 | NUR ---
No distress noted, pt. report given to JORGE Rodriguez. Care of pt assumed per NOC RN, day shift RN relinquished care and signed off.
--- NOTE | 2020-08-28 20:01 | NUR ---
Respiratory note: AT BEDSIDE FOR ROUTINE VENT CHECK NO VENT CHANGES MADE. JORGE KUO AT BEDSIDE COMMUNICATING FINDINGS. OPA STILL IN PLACE DUE TO PT BITING. PT OPENS EYES BUT EYES REMAIN ROLLED BACK. GAG AND SOME FACIAL GRIMACING WITH SX NOTED.
--- NOTE | 2020-08-28 20:30 | NUR ---
COOLING MEASURES TEMP 99.8 AXILLARY APPLIED ICE PACKS TO BILATERALLY AXILLA AND BEHIND NECK, DAMP CLOTH ON FOREHEAD.
--- NOTE | 2020-08-28 20:50 | NUR ---
PATIENT NOTED TO HAVE SINUS TACHY (140'S) WITH PAC'S IMPLEMENTED COOLING MEASURES AND TYLENOL. (T 99.8 RIGHT AXILLARY) PATIENT SELF CONVERTED FROM SINUS TACHY (140 BPM) TO SINUS RHYTHM IN (80 BPM) WILL CONTINUE TO MONITOR.
[2020-08-28] MEDS: ACETAMINOPHEN 325 MG TAB PO PRN (20:53)
--- NOTE | 2020-08-28 22:00 | NUR ---
Respiratory note: at bedside for routine vent check. no changes made med neb tx given inline without adverse reaction noted. Albuterol held due to hr in 130s. Atrovent given only at this time. will communicated to JORGE Brady. RN at bedside performing ekg. will continue to monitor.
--- NOTE | 2020-08-28 22:09 | NUR ---
OBTAINED 12 LED ECG UNUSUAL P AXIS, POSSIBLE ECTOPIC ATRIAL TACHYCARDIA NONSPECIFIC ST ABNORMALITY FILED ECG IN PATIENTS FOLDER TEMP 99.8 ORAL ADDITIONAL COOLING MEASURES: DECREASED ROOM TEMP, FAN, APPLIED DAMP CLOTH BILATERAL LOWER EXTREMITIES. PATIENT CONVERTED TO SINUS RHYTHM AT 2223 (HR IN LOW 80'S, SHE WAS AT HR 142)
[2020-08-28] MEDS: FAMOTIDINE (10MG/ML) 2ML VL IV SCH (22:16)
[2020-08-29] VITALS (88 sets, daily range): BP systolic 123–178; BP diastolic 73–108
[2020-08-29] MEDS: PIPERACILLIN-TAZOB 3.375GM 100 ML IV SCH ×5 (00:31→23:59)
--- NOTE | 2020-08-29 00:50 | NUR ---
PAGED HOSPITALIST REGARDING HIGH BP SYSTOLIC BP RANGES BETWEEN 140 AND 170 LATEST BP IS 176/105
--- NOTE | 2020-08-29 00:56 | NUR ---
RECEIVED NEW ORDERS FROM HOSPITALIST REGARDING HIGH BP LABETALOL 10MB IV ONCE
[2020-08-29] MEDS ORDERED: LABETALOL HCL 5 MG/ML 4ML SYRINGE IV ONE (01:00)
[2020-08-29] MEDS: IPRATROPIUM BROM 0.5 MG/2.5ML INH SOL NEB SCH ×6 (02:15→22:20)
[2020-08-29] MEDS: ALBUTEROL SULF 2.5 MG/0.5ML(0.5%) NEB SOLN NEB SCH ×6 (02:15→22:20)
[2020-08-29 03:19] LABS: Basophils # (auto) 0.1 10 ^3/uL (0-0.2); Basophils % (auto) 0.7 % (0.0-2.0); Eosinophils # (auto) 0.1 10 ^3/uL (0-0.8); Eosinophils % (auto) 1.2 % (0.0-7.0); Hematocrit 37.6 % (36.0-46.0); Lymphocytes # (auto) 1.3 10 ^3/uL (0.4-5.4); Lymphocytes % (auto) 12.6 % (10.0-50.0); Mean Corpuscular Hgb Conc. 34.4 g/dL (32.0-36.0); Mean Corpuscular Volume 87.1 fL (80.0-100.0); Monocytes # (auto) 0.9 10 ^3/uL (0-1.3); Monocytes % (auto) 9.1 % (0.0-12.0); Neutrophils # (auto) 7.7 10 ^3/uL (1.6-8.6); Neutrophils % (auto) 76.4 % (37.0-80.0); Platelet Count (auto) 390 10^3/uL (140-450); Red Blood Cells 4.32 10^6/uL (4.0-5.20); Red Cell Distribution Width 15.4 % (11.8-14.3); White Blood Cell 10.1 10^3/uL (4.4-10.8)
[2020-08-29 03:38] LABS: BUN/Creatinine Ratio 11.9; Calcium 8.5 mg/dL (8.5-10.1)
--- NOTE | 2020-08-29 04:30 | NUR ---
CARES FULL BED LINEN CHANGE, DID CARES ON PROLAPSED UTERUS ACCORDING TO WOUND CARE INSTRUCTIONS. PLACED NEW OPTIFOAM. TOLERATED TURNS WELL, DOES NOT FOLLOW INSTRUCTIONS, PUPILS 3MM AND BRISK, EYES ARE POINTING UP AT ALL TIMES, OPENS HER EYE LIDS TO LIGHT TOUCH. NO EXTREMITY MOVEMENTS NOTED.
[2020-08-29] MEDS: ACCU-CHEK COMFORT CURVE STRIP VI SCH ×4 (06:00→18:14)
[2020-08-29] MEDS: InsuLIN REG 1unit/0.01ml Soln (100units/ml) SC SCH ×4 (06:00→18:00)
--- NOTE | 2020-08-29 06:14 | NUR ---
Respiratory note: RECEIVED PATIENT ON RENTAL V200 VENT, ORALLY INTUBATED WITH A 7.0 ETT SECURED VIA CARL AT THE 21CM MARKING AT THE LIP, AND MECHANICALLY VENTILATED WITH THE CHARTED SETTINGS. SPO2 100%, LUNG SOUNDS DIM T/O, SMALL AMOUNT OF THIN CLOUDY SECRETIONS WHEN SUCTIONED. SKIN IS WARM/DRY TO THE TOUCH AND IS INTACT NEAR CARL SITE. THERE IS A SMALL SKIN ABRASION NOTED ON THE LEFT SIDE OF THE BOTTOM LIP. NO ADVANCE ACCESS LINES NOTED. THERE ARE LEG SEQUENTIALS IN PLACE AND OPERATIONAL. NO NEW AM CXR TO ASSESS ETT PLACEMENT. PATIENT IS UNRESPONSIVE TO BOTH VERBAL/TACTILE STIMULI AND IS OFF ALL SEDATION. SHE IS RESTING COMFORTABLY AND TOLERATING VENT WELL, NO CHANGES MADE. VENT PLUGGED INTO RED OUTLET AND ALL ALARMS ARE SET AND AUDIBLE. WILL CONTINUE TO ASSESS PATIENT WELL VENTILATOR FUNCTION. MED-NEB HELD AT THIS TIME FOR REOCCURRING SVT.
[2020-08-29] MEDS: FUROSEMIDE 20 MG/2 ML VIAL IV SCH ×2 (06:24→18:19)
--- NOTE | 2020-08-29 07:10 | NUR ---
Assumed care of pt., report received per JORGE Rodriguez. No distress noted, pt. attached to monitor and reading sinus rhythm /s ectopy, will cont.to monitor for any changes, assessment ongoing.
[2020-08-29] MEDS: LINEZOLID 600MG/300ML 300 ML IV SCH ×2 (10:00→21:31)
[2020-08-29] MEDS: METOPROLOL TARTRATE 1MG/1ML-5ML VIAL IV PRN (10:01)
[2020-08-29] MEDS: ENOXAPARIN SOD 100 MG/1 ML SYRINGE SC SCH (10:02)
[2020-08-29] MEDS: DexMEDEtomidine 400 MCG in D5W 5% 96 ML IV SCH (11:44)
[2020-08-29] MEDS: PROPOFOL 100 ML IV SCH (11:44)
[2020-08-29] MEDS: MIDAZOLAM DRIP 50 mg/50mL 50 ML IV SCH (11:44)
[2020-08-29] MEDS: NOREPINEPHRINE 8 MG/250ML KIT 250 ML IV SCH (14:00)
--- NOTE | 2020-08-29 17:58 | NUR ---
Respiratory note: RECEIVED PT ON VENT, VENT CONNECTED TO RED OUTLET AND O2 SOURCE ALARMS ARE SET AND AUDIBLE. AMBU BAG AND MASK AT BEDSIDE. BS ARE FINE COURSE , SXD VIA ETT FOR THICK GARCIA/WHITE. MED NEB TX GIVEN INLINE WITHOUT ADVERSE REACTION NOTED. WILL CONTINUE TO MONITOR Q2H AND NEEDED. RN ESDRAS AT BEDSIDE PERFORMING CARES.
--- NOTE | 2020-08-29 19:05 | NUR ---
No distress noted, pt. report given to JORGE Goss. Care of pt. assumed per NOC RN, day shift RN relinquished care and signed off.
[2020-08-29] MEDS: ENOXAPARIN SOD 80 MG/0.8ML SYRINGE SC SCH (21:31)
[2020-08-29] MEDS: FAMOTIDINE (10MG/ML) 2ML VL IV SCH (21:32)
--- NOTE | 2020-08-29 22:00 | NUR ---
IV insertion Rt.AC IV line removed and another IV access obtained, via clean sterile technique by inserting 20 gauge catheter at Rt.ac. IV secured properly. No trauma to site. Patient tolerated procedure well.
--- NOTE | 2020-08-29 23:00 | NUR ---
Patient bathe/linen change Patient given complete bath. Skin integrity assessed for any changes. Linens changed. Patient repositioned for comfort.
[2020-08-30] VITALS (38 sets, daily range): BP systolic 114–161; BP diastolic 69–95
[2020-08-30] MEDS: ACCU-CHEK COMFORT CURVE STRIP VI SCH ×4 (00:03→17:58)
[2020-08-30] MEDS: InsuLIN REG 1unit/0.01ml Soln (100units/ml) SC SCH ×4 (00:03→18:00)
[2020-08-30] MEDS: IPRATROPIUM BROM 0.5 MG/2.5ML INH SOL NEB SCH ×6 (02:15→22:05)
[2020-08-30] MEDS: ALBUTEROL SULF 2.5 MG/0.5ML(0.5%) NEB SOLN NEB SCH ×6 (02:15→22:05)
[2020-08-30 04:02] LABS: Basophils # (auto) 0 10 ^3/uL (0-0.2); Basophils % (auto) 0.3 % (0.0-2.0); Eosinophils # (auto) 0.2 10 ^3/uL (0-0.8); Eosinophils % (auto) 2.2 % (0.0-7.0); Hematocrit 39.3 % (36.0-46.0); Hemoglobin 13.4 g/dL (12.2-16.2); Lymphocytes # (auto) 1.7 10 ^3/uL (0.4-5.4); Lymphocytes % (auto) 15.6 % (10.0-50.0); Mean Corpuscular Hemoglobin 29.4 pg (28.0-32.0); Mean Corpuscular Hgb Conc. 34.1 g/dL (32.0-36.0); Mean Corpuscular Volume 86.3 fL (80.0-100.0); Monocytes # (auto) 0.9 10 ^3/uL (0-1.3); Monocytes % (auto) 8.6 % (0.0-12.0); Neutrophils % (auto) 73.3 % (37.0-80.0); Nucleated Red Blood Cells % 0.1 %; Platelet Count (auto) 435 10^3/uL (140-450); Red Blood Cells 4.55 10^6/uL (4.0-5.20); Red Cell Distribution Width 15.8 % (11.8-14.3)
[2020-08-30 04:20] LABS: BUN/Creatinine Ratio 14.7; Calcium 8.6 mg/dL (8.5-10.1); Potassium 3.6 mmol/L (3.5-5.1)
[2020-08-30] MEDS: PIPERACILLIN-TAZOB 3.375GM 100 ML IV SCH ×2 (05:34→12:17)
[2020-08-30] MEDS: FUROSEMIDE 20 MG/2 ML VIAL IV SCH ×2 (05:34→17:58)
--- NOTE | 2020-08-30 07:05 | NUR ---
Assumed care of pt., report received per JORGE Goss. No distress noted, pt. reading sinus rhythm on monitor, VSS, will cont.to monitor for any changes, assessment ongoing.
--- NOTE | 2020-08-30 08:30 | NUR ---
Dr. Kent present to see pt., made aware of pt. increasing temp, no new orders received, will cont.to monitor for any changes, assessment ongoing.
--- NOTE | 2020-08-30 10:35 | NUR ---
Nutrition Followup Notes Wt: 70.4 kg Pt was intubated sedated with no family by bedside. pt is currently NPO on EN feeds with Jevity 1.2 @ 50 ml/hr providing 1440 kcals and 66 gm proteins. pt with fair EN support Est Energy needs: 3507-1623 kcals (20-23 kcal/kgBW), Est Protein needs: 59-74 gms/day (0.8-1.0 gm/kgBW). Will continue to monitor and reassess prn. LABS: GLU 132 H GI: Pt with no BM today Last BM unknown per RN doc BS: 11 high risk. Refer to wound assessment report for full details. PES: 1) Increased nutrient needs aeb pt is sedated, intubated, NPO r/t pt with no PO intake 2) Overweight aeb 141% IBW and BMI of 28.7 kg/m2 r/t energy intake in excess of energy needs Comments: will continue to monitor NPO status, EN tolerance skin status. F/u high 2-3 days Rec: 1) Advance EN support with Jevity 1.2 @ 55ml/hr goal rate per MD approval. 2) Gradually advance pt to an oral Cardiac 2gNa,lowfat,lowchol diet when feasible per MD approval. 3) Continue current plan of care
[2020-08-30] MEDS: ENOXAPARIN SOD 80 MG/0.8ML SYRINGE SC SCH ×2 (11:09→21:45)
[2020-08-30] MEDS: LINEZOLID 600MG/300ML 300 ML IV SCH (11:09)
[2020-08-30] MEDS: FAMOTIDINE (10MG/ML) 2ML VL IV SCH ×2 (11:09→21:45)
[2020-08-30] MEDS: PROPOFOL 100 ML IV SCH (12:15)
--- NOTE | 2020-08-30 12:19 | NUR ---
error in charting no tx was given at 654
[2020-08-30] MEDS: DexMEDEtomidine 400 MCG in D5W 5% 96 ML IV SCH (12:25)
[2020-08-30] MEDS: MIDAZOLAM DRIP 50 mg/50mL 50 ML IV SCH (12:25)
[2020-08-30] MEDS: NOREPINEPHRINE 8 MG/250ML KIT 250 ML IV SCH (14:00)
[2020-08-30] MEDS: METOPROLOL TARTRATE 1MG/1ML-5ML VIAL IV PRN (14:16)
--- NOTE | 2020-08-30 15:16 | NUR ---
Assessment Patient is a 58-year-old female who is on a Vent. Per patient jennifer Rojo patient is homeless and lives in [facility]. Per Alia patient came to visit a friend and then became ill and went back to [facility] she then came back stay with her for a week and left again with her friend. Abrahan Rojo the second time she came back she ended up i at [facility]. Abrahan Rojo at this time she does not want to make any decisions. Abrahan Rojo patient does not have health insurance. Will continue to monitor. Addendum: 08/30/20 at 1520 by FAITH HUNT Amended: Links added.
[2020-08-30] MEDS: cefTRIAXone 1GM/50ML D5W 50 ML IV SCH (17:57)
[2020-08-30] MEDS: AZITHROMYCIN 500MG/ 250ML 250 ML IV SCH (17:58)
--- NOTE | 2020-08-30 19:05 | NUR ---
No distress noted, pt. report given to JORGE Goss. Care of pt. assumed per NOC RN, day shift RN relinquished care and signed off.
--- NOTE | 2020-08-30 23:25 | NUR ---
PAGED HOSPITALIST REGARDING TACHYCARDIA.
--- NOTE | 2020-08-30 23:40 | NUR ---
PAGED HOSPITALIST AGAIN.
--- NOTE | 2020-08-30 23:45 | NUR ---
HOSPITALIST CALLED BACK AND ORDERS RECEIVED.
[2020-08-30] MEDS ORDERED: dilTIAZem 25 MG/5 ML VIAL IV ONE (23:48)
[2020-08-31] VITALS (37 sets, daily range): BP systolic 116–153; BP diastolic 68–93
[2020-08-31] MEDS ORDERED: dilTIAZem 25 MG/5 ML VIAL IV ONE
[2020-08-31] MEDS: ACCU-CHEK COMFORT CURVE STRIP VI SCH ×4 (00:32→17:21)
[2020-08-31] MEDS: InsuLIN REG 1unit/0.01ml Soln (100units/ml) SC SCH ×4 (00:32→17:15)
[2020-08-31] MEDS: IPRATROPIUM BROM 0.5 MG/2.5ML INH SOL NEB SCH ×6 (02:13→22:07)
[2020-08-31] MEDS: ALBUTEROL SULF 2.5 MG/0.5ML(0.5%) NEB SOLN NEB SCH ×6 (02:13→22:07)
--- NOTE | 2020-08-31 03:00 | NUR ---
Patient bathe/linen change Patient given complete bath. Skin integrity assessed for any changes. Linens changed. Patient repositioned for comfort.
[2020-08-31 04:34] LABS: Basophils # (auto) 0 10 ^3/uL (0-0.2); Basophils % (auto) 0.4 % (0.0-2.0); Eosinophils # (auto) 0.1 10 ^3/uL (0-0.8); Eosinophils % (auto) 1.2 % (0.0-7.0); Hematocrit 38.9 % (36.0-46.0); Lymphocytes # (auto) 1.4 10 ^3/uL (0.4-5.4); Mean Corpuscular Hemoglobin 29.2 pg (28.0-32.0); Mean Corpuscular Hgb Conc. 33.4 g/dL (32.0-36.0); Mean Corpuscular Volume 87.3 fL (80.0-100.0); Monocytes # (auto) 1.2 10 ^3/uL (0-1.3); Monocytes % (auto) 9.3 % (0.0-12.0); Neutrophils % (auto) 78.1 % (37.0-80.0); Platelet Count (auto) 454 10^3/uL (140-450); Red Blood Cells 4.45 10^6/uL (4.0-5.20); Red Cell Distribution Width 15.4 % (11.8-14.3); White Blood Cell 12.8 10^3/uL (4.4-10.8)
[2020-08-31 04:52] LABS: BUN/Creatinine Ratio 16.7; Calcium 9.2 mg/dL (8.5-10.1); Potassium 4.1 mmol/L (3.5-5.1)
[2020-08-31] MEDS: FUROSEMIDE 20 MG/2 ML VIAL IV SCH ×2 (05:48→17:23)
[2020-08-31] MEDS: LORazepam 2MG/ML-1ML VIAL IV PRN ×3 (08:21→21:48)
[2020-08-31] MEDS: cefTRIAXone 1GM/50ML D5W 50 ML IV SCH (08:25)
[2020-08-31] MEDS: AZITHROMYCIN 500MG/ 250ML 250 ML IV SCH (09:18)
[2020-08-31] MEDS: FAMOTIDINE (10MG/ML) 2ML VL IV SCH ×2 (09:18→22:21)
[2020-08-31] MEDS: ENOXAPARIN SOD 80 MG/0.8ML SYRINGE SC SCH ×2 (09:18→22:21)
--- NOTE | 2020-08-31 11:01 | NUR ---
ASSESSMENT DONE ON THE PATIENT PATIENT NON RESPONSIVE TO COMMAND. PUPILS BOTH ARE ROLLING UP AT SMALL SIZE. PATIENT REMAINED INTUBATED AND ON MECHANICAL VENTILATION. PATIENT WITHDRAWS TO PAIN AND HAVE GOOD GAGA AND COUGHING REFLEX. PATIENT HAVE LOW GREAD TEMPERATURE OF 100 .5 KEPT COOL DONE. PATIENT HAVE JEVITTY RUNNING AT 55 CC/HR. ANDRADE CATHETER INTACT.
[2020-08-31] MEDS: ACETAMINOPHEN 325 MG TAB PO PRN (11:48)
[2020-08-31] MEDS: PROPOFOL 100 ML IV SCH (12:15)
--- NOTE | 2020-08-31 12:17 | NUR ---
PATIENT'S TEMPERATURE 100.4 PATIENT GIVEN TYLENOL 650 MG VIA NGT.
[2020-08-31] MEDS: MIDAZOLAM DRIP 50 mg/50mL 50 ML IV SCH (12:45)
[2020-08-31] MEDS: DexMEDEtomidine 400 MCG in D5W 5% 96 ML IV SCH (13:30)
[2020-08-31] MEDS: NOREPINEPHRINE 8 MG/250ML KIT 250 ML IV SCH (14:00)
[2020-08-31 14:13] LABS: Lactic Acid w/Reflex 2.5 mmol/L (0.4-2.0)
[2020-08-31] MEDS: METOPROLOL TARTRATE 1MG/1ML-5ML VIAL IV PRN (14:23)
--- NOTE | 2020-08-31 14:29 | NUR ---
pATIENT WENT INTO SVT 151 BLOOD PRESSURE REMAINED WNL. LOPRESSOR 10 MG IV WAS ORDERED ONLY GAVE 5 MG AND PATIENT HR WENT DOWN TO 78 SINUS.
--- NOTE | 2020-08-31 17:05 | NUR ---
PATIENT HAVING FINE TREMORS ON THE LEFT FOOT. ATIVAN [address] HORNE WAS CALLED .
--- NOTE | 2020-08-31 19:30 | NUR ---
whole body seizure
[2020-08-31] MEDS: Jevity 1.2 Cal/Fiber 1 Liter GT SCH (20:00)
--- NOTE | 2020-08-31 20:00 | NUR ---
ADMITTED ON 08/25/20 AFTER A WITNESSED ARREST AT HOME. INTUBATED IN THE FIELD AND BROUGHT HERE. NEURO: EYES CONTINUALLY ARE LOOKING UP. VALENTINO AT 4 AND ARE SLUGGISH. + BLINK, GAG AND COUGH. SCLERAS RED. ORALLY INTUBATED. RIGHT NARE NGT. SMALL AMOUNT OF BLOODY ORAL SECRETIONS. ORAL CARE DONE. SUCTIONED ETT FOR NO SECRETIONS. LUNGS CLEAR. ABDOMEN IS ROUND, LARGE AND BOUNCY. ONLY 2CC RESIDUAL FROM THE NGT. JEVITY AT 55CC/HR RUNNING. NEW BOTTLE AND TUBING HUNG. HAS MULTIPLE ROUND ECCHYMOTIC AREAS ON ARMS, ABDOMEN AND LEGS. SOME OF THOSE ARE OLD SCABBED WOUNDS. MOTTLING NOTED FROM KNEES/THIGH. SCDS ON. REMOVED AND REPLACED. ALL PULSES ARE PALPABLE. TEMP 98.4. ANDRADE IN. GOOD URINE OUTPUT. NORMAL SALINE TKO. ECCHYMOTIC AREA NOTED ON LEFT ABDOMEN. RAISED, HARD.
--- NOTE | 2020-08-31 21:45 | NUR ---
HAD A FULL BODY SEIZURE. ATIVAN GIVEN,
--- NOTE | 2020-08-31 21:45 | NUR ---
SEIZURE MANAGEMENT: ATIVAN GIVEN, BUT DOESN'T LAST. VERSED DRIP STARTED AT 1MG TO HELP MANAGE THE SEIZURES. SEIZURE DESCRIPTION: EYES FLUTTER, SHE LOOKS STRAIGHT UP. ARMS AND LEGS GET STIFF. NOT ABLE TO RESPOND, PATIENT ON SEDATION. SEIZURE LASTED 15 SECONDS. UNABLE TO DESCRIBE POSTICTAL ON SEDATION
--- NOTE | 2020-08-31 22:00 | NUR ---
PATIENT IS SHAKING HER ARMS AND LEGS. ATIVAN GIVEN WITH SUCCESS. NSR WITHOUT ECTOPY. HR CONSISTENTLY 99-100. SBP 116-135. OVERBREATHING THE VENTILATOR. AC OF 18, RR 21 ORAL CARE DONE AND REPOSITIONED TO HER LEFT SIDE.
[2020-09-01] VITALS (58 sets, daily range): BP systolic 94–144; BP diastolic 54–105
[2020-09-01] MEDS: ACCU-CHEK COMFORT CURVE STRIP VI SCH ×4 (00:13→17:51)
[2020-09-01] MEDS: ACETAMINOPHEN 325 MG TAB PO PRN ×3 (00:13→16:55)
[2020-09-01] MEDS: InsuLIN REG 1unit/0.01ml Soln (100units/ml) SC SCH ×4 (00:24→17:51)
[2020-09-01] MEDS: MIDAZOLAM DRIP 50 mg/50mL 50 ML IV SCH (00:48)
--- NOTE | 2020-09-01 00:53 | NUR ---
RT WORKED WITH HER BITE BLOCK. IT AGITATED HER ENOUGH, SHE WAS HAVING DIFFICULTY BREATHING. RR 43. MIDAZOLAM DRIP ADDED MIDAZOLAM DRIP.
--- NOTE | 2020-09-01 01:41 | NUR ---
PATIENT IS NOT GETTING HER VOLUMES. CALLED RT.
--- NOTE | 2020-09-01 01:55 | NUR ---
PUT A NEW ETT STABILIZATION DEVICE ON. NEW OPA. GETTING VOLUMES.
[2020-09-01] MEDS: IPRATROPIUM BROM 0.5 MG/2.5ML INH SOL NEB SCH ×6 (01:56→21:52)
[2020-09-01] MEDS: ALBUTEROL SULF 2.5 MG/0.5ML(0.5%) NEB SOLN NEB SCH ×6 (01:56→21:52)
--- NOTE | 2020-09-01 02:13 | NUR ---
WHOLE BODY SEIZURE
[2020-09-01] MEDS: LORazepam 2MG/ML-1ML VIAL IV PRN ×4 (02:46→23:29)
--- NOTE | 2020-09-01 02:46 | NUR ---
AT 2 AM, INCREASED THE VERSED TO 2 MG AFTER ANOTHER SIMILAR SEIZURE. AT 0246, ATIVAN GIVEN AFTER A GRAND MAL SEIZURE INVOLVING ALL THE EXTREMITIES. EYELIDS BLINKING SLOWLY, EYES LOOKING UP. SELF LIMITING SEIZURE THAT LASTED ON 10 SECONDS.
--- NOTE | 2020-09-01 02:53 | NUR ---
WHOLE BODY SEIZURE
--- NOTE | 2020-09-01 03:43 | NUR ---
GRAND MAL SEIZURE, 10 SECONDS INVOLVING STIFFNESS IN ALL EXTREMITIES. YOU KNOW WHEN IT HAPPENS BECAUSE THERE IS PRESSURE IN THE VENTILATOR AND THE ALARM GOES OFF.
[2020-09-01 04:15] LABS: Basophils # (auto) 0.1 10 ^3/uL (0-0.2); Basophils % (auto) 0.3 % (0.0-2.0); Eosinophils # (auto) 0 10 ^3/uL (0-0.8); Eosinophils % (auto) 0.2 % (0.0-7.0); Hemoglobin 11.4 g/dL (12.2-16.2); Lymphocytes # (auto) 1.9 10 ^3/uL (0.4-5.4); Lymphocytes % (auto) 11.1 % (10.0-50.0); Mean Corpuscular Hemoglobin 28.8 pg (28.0-32.0); Mean Corpuscular Hgb Conc. 32.6 g/dL (32.0-36.0); Mean Corpuscular Volume 88.5 fL (80.0-100.0); Monocytes # (auto) 2.2 10 ^3/uL (0-1.3); Monocytes % (auto) 12.9 % (0.0-12.0); Neutrophils # (auto) 12.7 10 ^3/uL (1.6-8.6); Neutrophils % (auto) 75.5 % (37.0-80.0); Platelet Count (auto) 377 10^3/uL (140-450); Red Blood Cells 3.95 10^6/uL (4.0-5.20); Red Cell Distribution Width 15.9 % (11.8-14.3); White Blood Cell 16.9 10^3/uL (4.4-10.8)
[2020-09-01 04:55] LABS: Potassium 4.4 mmol/L (3.5-5.1)
[2020-09-01 05:01] LABS: BUN/Creatinine Ratio 21.8; Calcium 9.1 mg/dL (8.5-10.1)
--- NOTE | 2020-09-01 05:20 | NUR ---
GRAND MAL SEIZURE INVOLVING ALL EXTREMITES
--- NOTE | 2020-09-01 05:30 | NUR ---
CHG BATH COMPLETE. LOTION TO SKIN. INCONTINENT OF A THICK LOOSE BROWN BM, LARGE AMOUNT
--- NOTE | 2020-09-01 05:40 | NUR ---
GRAND MAL SEIZURE LASTING 4 MINUTES
[2020-09-01] MEDS: FUROSEMIDE 20 MG/2 ML VIAL IV SCH ×2 (05:42→17:47)
--- NOTE | 2020-09-01 06:24 | NUR ---
SVT 150 HOSPITALIST PAGED
--- NOTE | 2020-09-01 07:00 | NUR ---
REPORT RECEIVED FROM HELP DESK ANALYST NURSE. PATIENT RESTING BED AT THIS INTUBATED AND ON LIGHT SEDATIONS. RESPIRATIONS EVEN AND UNLABORED. NO SIGNS OF ACUTE DISTRESS NOTED. BED IN LOW POSITION. WILL CONTINUE TO MONITOR.
--- NOTE | 2020-09-01 07:13 | NUR ---
HR DOWN TO 122. HAD AT LEAST 10 WITNESSED ALL BODY SEIZURES.
--- NOTE | 2020-09-01 08:15 | NUR ---
PAGED DR MARROQUIN FOR ELEVATED HEART RATE IN 120-130'S AWAITING CALL BACK.
[2020-09-01] MEDS: cefTRIAXone 1GM/50ML D5W 50 ML IV SCH (09:11)
--- NOTE | 2020-09-01 09:51 | NUR ---
CODE STATUS CHANGE ARSALAN ARGUETA PATIENTS NIECE AND MEDICAL DECISION MAKER CALLED TO MAKE PATIENT A FULL DNR AT THIS TIME. PER ARSALAN SHE IS TALKING WITH FAMILY AND MAY COME IN TOMORROW TO DO TERMINAL WEAN ON PATIENT. ALL QUESTIONS AND CONCERNS ADDRESSED AT THIS TIME. PER ARSALAN MAKE PATIENT FULL DNR AND CONTINUE CURRENT CARE. WILL CALL MD TO INFORM.
--- NOTE | 2020-09-01 10:02 | NUR ---
PAGED DR JOHNSON TO INFORM OF PATIENTS DONNA ARGUETA MAKING PATIENT DNR STATUS. AWAITING CALL BACK.
[2020-09-01] MEDS: ENOXAPARIN SOD 80 MG/0.8ML SYRINGE SC SCH ×2 (10:29→21:42)
[2020-09-01] MEDS: AZITHROMYCIN 500MG/ 250ML 250 ML IV SCH (10:29)
[2020-09-01] MEDS: FAMOTIDINE (10MG/ML) 2ML VL IV SCH (10:29)
--- NOTE | 2020-09-01 10:44 | NUR ---
Nutrition Followup Notes Wt: 73.6 kg Pt was intubated sedated with no family by bedside. pt is currently NPO on EN feeds with Jevity 1.2 @ 50 ml/hr providing 1440 kcals and 66 gm proteins. pt with fair EN support Est Energy needs: 0887-7731 kcals (20-23 kcal/kgBW), Est Protein needs: 59-74 gms/day (0.8-1.0 gm/kgBW). Will continue to monitor and reassess prn. LABS: BUN 36 H CREAT 1.65 H GLU 129 H GI: Pt had 100 ml BM today per RN doc BS: 17 mod risk. Refer to wound assessment report for full details. PES: 1) Increased nutrient needs aeb pt is sedated, intubated, NPO r/t pt with no PO intake 2) Overweight aeb 141% IBW and BMI of 28.7 kg/m2 r/t energy intake in excess of energy needs Comments: will continue to monitor NPO status, EN tolerance skin status. F/u high 2-3 days Rec: 1) Advance EN support with Jevity 1.2 @ 55ml/hr goal rate per MD approval. 2) Gradually advance pt to an oral Cardiac 2gNa,lowfat,lowchol diet when feasible per MD approval. 3) Continue current plan of care
[2020-09-01] MEDS: PROPOFOL 100 ML IV SCH (12:15)
[2020-09-01] MEDS: DexMEDEtomidine 400 MCG in D5W 5% 96 ML IV SCH (13:30)
[2020-09-01] MEDS: NOREPINEPHRINE 8 MG/250ML KIT 250 ML IV SCH (14:00)
--- NOTE | 2020-09-01 14:00 | NUR ---
SVT DR MARROQUIN AT BEDSIDE TO ASSESS PATIENT AND DISCUSS PLAN OF CARE. MD AWARE THAT PATIENT GOLD GONE INTO SVT 140-150S AND HAS HAD THIS HAPPEN A COUPLE TIMES OVER THE LAST COUPLE DAYS. PER MD CARDIOVERT PATIENT. PATIENT CONNECTED TO CRASH CART AND SYNCHRONIZED 50 JOULES GIVEN PER MD ORDER. PATIENT REMAINED IN SVT AND DR ORDERED TO INCREASE TO 200 JOULES. SHOCK WAS GIVEN AND PATIENT CONVERTED TO SINUS RHYTHM 80-90S. PER MD START PATIENT ON AMIODARONE PO 400MH BID. ALL ORDERS NOTED IN CHART.
--- NOTE | 2020-09-01 18:20 | NUR ---
DR HORNE AT BEDSIDE TO ASSESS PATIENT AND DISCUSS PLAN OF CARE. MD MADE AWARE OF FREQUENT SEIZURE ACTIVITY. MD TO START SEIZURE MEDICATIONS AND ADJUST ATIVAN DOSAGE. ALL ORDERS NOTED IN CHART.
--- NOTE | 2020-09-01 19:42 | NUR ---
ADMITTED ON 08/25/20 AFTER A WITNESSED ARREST AT HOME. INTUBATED IN THE FIELD AND BROUGHT HERE. NEURO: EYES CONTINUALLY ARE LOOKING UP. VALENTINO AT 4 AND ARE SLUGGISH. + BLINK, GAG AND COUGH. SCLERAS RED. ORALLY INTUBATED. RIGHT NARE NGT. OPA AND BITE BLOCK IN MOUTH. BITES ETT DURING SEIZURES. ORAL CARE DONE. SUCTIONED ETT FOR NO SECRETIONS. LUNGS CLEAR. ABDOMEN IS ROUND, LARGE AND BOUNCY. ONLY 2CC RESIDUAL FROM THE NGT. JEVITY AT 55CC/HR RUNNING. NEW BOTTLE AND TUBING HUNG. HAS MULTIPLE ROUND ECCHYMOTIC AREAS ON ARMS, ABDOMEN AND LEGS. SOME OF THOSE ARE OLD SCABBED WOUNDS. MOTTLING NOTED FROM KNEES/THIGH. SCDS ON. REMOVED AND REPLACED. ALL PULSES ARE PALPABLE. TEMP 98.4. ANDRADE IN. GOOD URINE OUTPUT. NORMAL SALINE TKO. ECCHYMOTIC AREA NOTED ON LEFT ABDOMEN. RAISED, HARD. DR HORNE WROTE FOR KEPPRA, ATIVAN FREQUENCY INCREASED. NIECE: PATIENT IS NOW A DNR. POSSIBLE TERMINAL WEAN TOMORROW. CARA: CARDIOVERSION ON DAYSHIFT AND STARTED PATIENT ON AMIODARONE
[2020-09-01] MEDS: Jevity 1.2 Cal/Fiber 1 Liter GT SCH (20:00)
[2020-09-01] MEDS: AMIODARONE HCL 200 MG TAB PO SCH (21:42)
--- NOTE | 2020-09-01 22:00 | NUR ---
DEVINRA INFUSED. AMIODARONE DOSE GIVEN. REPOSITIONED TO BACK. ORAL CARE GIVEN. JESSICA AREA CHECKED, CLEAN. NO SEIZURE ACTIVITY. NSR WITHOUT ECTOPY.
--- NOTE | 2020-09-01 22:49 | NUR ---
WITNESSED GRAND MAL SEIZURE LASTING ONE MINUTE. LORAZEPAM GIVEN.
--- NOTE | 2020-09-01 23:28 | NUR ---
WITNESSED GRAND MAL SEIZURE LASTING 20 SECONDS. ATIVAN GIVEN
[2020-09-02] VITALS (91 sets, daily range): BP systolic 83–124; BP diastolic 49–77
--- NOTE | 2020-09-02 | NUR ---
ORAL CARE. REPOSITIONED TO LEFT. VERY LITTLE SUCTIONED FROM THE ETT. VALENTINO AT 4. TYLENOL FOR TEMP OF 100.4. CLEAR YELLOW LIQUID TO DOWN DRAIN BAG. ACCUCHECK REPLACED WITH REGULAR INSULIN. MOTTLING OF BILATERAL KNEE AND UPPER THIGH. NO CHANGE IN SKIN. NSR WITHOUT ECTOPY.
[2020-09-02] MEDS: ACCU-CHEK COMFORT CURVE STRIP VI SCH ×4 (00:03→18:09)
[2020-09-02] MEDS: ACETAMINOPHEN 325 MG TAB PO PRN (00:03)
[2020-09-02] MEDS: InsuLIN REG 1unit/0.01ml Soln (100units/ml) SC SCH ×4 (00:07→18:00)
--- NOTE | 2020-09-02 01:56 | NUR ---
PATIENT WENT INTO SVT 150. HOSPITALIST NOTIFIED. NO ORDER RECEIVED. HR DECREASED NOW TO 117.
[2020-09-02] MEDS: IPRATROPIUM BROM 0.5 MG/2.5ML INH SOL NEB SCH ×6 (02:00→22:00)
[2020-09-02] MEDS: ALBUTEROL SULF 2.5 MG/0.5ML(0.5%) NEB SOLN NEB SCH ×6 (02:00→22:00)
[2020-09-02] MEDS: LORazepam 2MG/ML-1ML VIAL IV PRN ×3 (03:32→22:02)
--- NOTE | 2020-09-02 03:33 | NUR ---
ATIVAN GIVEN FOR GRAND MAL SEIZURE. HR WENT UP TO 132 AND IS NOW DOWN TO 123.
--- NOTE | 2020-09-02 04:00 | NUR ---
DR MARROQUIN PAGED : HR OF 118. PREVIOUS HR 150 AT 0200
--- NOTE | 2020-09-02 04:15 | NUR ---
MORPHINE GIVEN, HR HIGH 122
--- NOTE | 2020-09-02 04:30 | NUR ---
DESPITE GIVING THE MORPHINE SLOWLY, IT DID DROP THE BLOOD PRESSURE BRIEFLY. HOB FLAT. NOW THE SYSTOLIC IS 96
--- NOTE | 2020-09-02 05:51 | NUR ---
ST CONVERTED TO NSR AT 0533 WITH A RATE OF 76. NOW MY SYSTOLIC BLOOD PRESSURE IS IN THE 60'S. TUBE FEED OFF. PATIENT LAID FLAT. FEET UP SLIGHTLY. SBP 85.
[2020-09-02] MEDS: FUROSEMIDE 20 MG/2 ML VIAL IV SCH (06:00)
--- NOTE | 2020-09-02 06:11 | NUR ---
NSR 83. SBP 94. STILL HEAD IS DOWN AND FEET SLIGHTLY UP. RT IN ROOM. RESP TX BEING GIVEN
--- NOTE | 2020-09-02 06:40 | NUR ---
ABG BEING DONE
--- NOTE | 2020-09-02 06:47 | NUR ---
NOT TURNING PATIENT, TOO UNSTABLE.
--- NOTE | 2020-09-02 07:45 | NUR ---
Opening Shift Note Assumed care of patient, [facility], no sedation. Jevity on hold, patient on supine position due to low BP, no residuals noted. No S/S of distress/SOB or pain. Patient hemodynamically unstable to be turned, unable to assess back at this time. See interventions for complete assessment. Bed locked on low position, side rails up x2, bed alarms on at all times, will continue to monitor for changes Q1hr and PRN.
--- NOTE | 2020-09-02 07:50 | NUR ---
Patient for possible terminal wean today per report from Shavon PATEL, awaiting patient's niece Nayana to come and see patient and make final decision. Called [facility], spoke to Aldo, reference number [id number]. Needed information provided.
--- NOTE | 2020-09-02 08:00 | NUR ---
Patient's temperature 100F rectally, cooling measures done. Will continue to monitor.
[2020-09-02] MEDS: cefTRIAXone 1GM/50ML D5W 50 ML IV SCH (09:17)
--- NOTE | 2020-09-02 09:45 | NUR ---
Oral care done, patient tolerated well.
--- NOTE | 2020-09-02 10:00 | NUR ---
Patient on supine position, hemodynamically unstable to be turned at this time. Will continue to monitor.
[2020-09-02] MEDS: ENOXAPARIN SOD 80 MG/0.8ML SYRINGE SC SCH ×2 (10:15→21:40)
[2020-09-02] MEDS: AZITHROMYCIN 500MG/ 250ML 250 ML IV SCH (10:15)
[2020-09-02] MEDS: FAMOTIDINE (10MG/ML) 2ML VL IV SCH (10:17)
[2020-09-02] MEDS: AMIODARONE HCL 200 MG TAB PO SCH ×2 (10:25→21:40)
--- NOTE | 2020-09-02 11:11 | NUR ---
Received call from patient's niece Nayana who's able to provide password. Updated on patient's status and POC, verbalized understanding and stated "I'm planning to come and see her today but I wanted to talk to her doctor first before I make decisions." Will inform MD.
--- NOTE | 2020-09-02 11:55 | NUR ---
Patient has unsustained run of SVT, HR 130's to 140's for two minutes. Patient is now NSR with PAC's, HR 80's. Will inform MD and continue to monitor.
--- NOTE | 2020-09-02 12:13 | NUR ---
Dr Rockwell at bedside, updated on patient's status. Patient seen and examined. Will carry out new orders. informed patient's niece Nayana wanted to be called for update and more information, will call niece after reviewing patient's chart.
[2020-09-02] MEDS: PROPOFOL 100 ML IV SCH (12:15)
--- NOTE | 2020-09-02 12:30 | NUR ---
Re-started Jevity at 30ml/hr via RT nare. Will continue to monitor.
[2020-09-02] MEDS: MIDAZOLAM DRIP 50 mg/50mL 50 ML IV SCH (12:45)
[2020-09-02] MEDS: DexMEDEtomidine 400 MCG in D5W 5% 96 ML IV SCH (13:09)
--- NOTE | 2020-09-02 13:15 | NUR ---
Patient turned to her left side using one pillow, patient tolerated well
--- NOTE | 2020-09-02 13:27 | NUR ---
mold yard worker Eileen at bedside to re-evaluate patient.
--- NOTE | 2020-09-02 13:30 | NUR ---
WOUND CARE NOTE: Wound care in to see patient for skin integrity monitoring.Patient continue resting in ICU low air loss bed in Rm. 101. Patient is intubated and mechanically ventilated. Patient appears to be in no pain using Garland Mason Faces Pain Scale. Her George score is 12. Patient's multiple scabs, scars, dry blister, lesion to L ear, forehead and chest remain intact, clean and dry, asymptomatic, left open to air . New photograph of wounds are taken for reference. Unable to fully assess patient's sacral and back per nurse request due to "patient is not stable for turning". Bedside nurse lightly redistributing pressure points by putting one pillow side to side but unable to fully turn patient. RECOMMENDATION: Continuation of all wound care orders MD prescribed, continue with skin/wound plan of care, continue monitoring by wound care while patient is hospitalized. Addendum: 09/02/20 at 1715 by Cassandra Canchola RN Amended: Links added.
--- NOTE | 2020-09-02 13:45 | NUR ---
Received call from patient's jennifer Kraus who's able to provide password. Updated on patient's status and POC, verbalized understanding. Awaiting MD's call.
--- NOTE | 2020-09-02 13:54 | NUR ---
Emilie from [facility] in the unit for patient's chart review, Ic Designer Gate Arrays Haritha informed and gave permission.
[2020-09-02] MEDS: NOREPINEPHRINE 8 MG/250ML KIT 250 ML IV SCH (14:00)
--- NOTE | 2020-09-02 14:30 | NUR ---
[facility] chart review completed and Emilie stated "We're calling it off, just give us a call for the time of ."
--- NOTE | 2020-09-02 16:19 | NUR ---
Dr Trevino at bedside, updated on patient's status. Patient seen and examined. Informed MD patient's niece Nayana requested to be called.
--- NOTE | 2020-09-02 18:01 | NUR ---
Wrong entry on I and O spread sheet, corrected. Total tube feeding amount 180ml, urine output amount 450.
--- NOTE | 2020-09-02 19:09 | NUR ---
ADMITTED ON 08/25/20 AFTER A WITNESSED ARREST AT HOME. INTUBATED IN THE FIELD AND BROUGHT HERE. NEURO: EYES CONTINUALLY ARE LOOKING UP. VALENTINO AT 4 AND ARE SLUGGISH. + BLINK, GAG AND COUGH. SCLERAS RED. ORALLY INTUBATED. RIGHT NARE NGT. OPA AND BITE BLOCK IN MOUTH. BITES ETT DURING SEIZURES. ORAL CARE DONE. SUCTIONED ETT FOR NO SECRETIONS. LUNGS CLEAR. ABDOMEN IS ROUND, LARGE AND BOUNCY. JEVITY AT 30CC/HR RUNNING. NEW BOTTLE AND TUBING HUNG. HAS MULTIPLE ROUND ECCHYMOTIC AREAS ON ARMS, ABDOMEN AND LEGS. SOME OF THOSE ARE OLD SCABBED WOUNDS. MOTTLING NOTED FROM KNEES/THIGH. SCDS ON. REMOVED AND REPLACED. ALL PULSES ARE PALPABLE. TEMP 98.4. ANDRADE IN. GOOD URINE OUTPUT. NORMAL SALINE TKO. ECCHYMOTIC AREA NOTED ON LEFT ABDOMEN. RAISED, HARD. ON KEPPRA, ATIVAN FREQUENCY INCREASED. NIECE: MADE THE PATIENT A DNR YESTERDAY. POSSIBLE TERMINAL WEAN TODAY. CARA: CARDIOVERSION ON DAYSHIFT YESTERDAY AND STARTED PATIENT ON AMIODARONE.
[2020-09-02] MEDS: Jevity 1.2 Cal/Fiber 1 Liter GT SCH (19:24)
--- NOTE | 2020-09-02 19:58 | NUR ---
13 BEAT RUN OF SVT, SELF LIMITING, NOT BROUGHT ON BY ANY OUTSIDE STIMULUS
--- NOTE | 2020-09-02 20:32 | NUR ---
NIECE HERE SPEAKING TO DR HORNE ON THE PHONE
--- NOTE | 2020-09-02 20:32 | NUR ---
DR HORNE REQUESTED THAT I CALL THE HOSPITALIST TO ORDER THE TERMINAL WEAN AND TO INQUIRE TO HOW WE TRANSPORT HER HOME IF SHE CONTINUES TO LIVE.
--- NOTE | 2020-09-02 20:33 | NUR ---
MORTISING MACHINE OPERATOR INFORMED ME THAT THE PRIMARY IS THE PERSON TO WRITE FOR A TERMINAL WEAN, NOT THE HOSPITALIST. SHE ASKED ME TO HAVE THEM CALL THE PRIMARY IN THE MORNING TO ARRANGE FOR A TERMINAL WEAN.
--- NOTE | 2020-09-02 21:00 | NUR ---
WHILE I WAS IN THE ROOM, THE PATIENT'S HEART RATE INCREASED TO 149. NOW IT IS 127.
--- NOTE | 2020-09-02 21:08 | NUR ---
2031 TILL NOW, I HAVE BEEN SPEAKING TO THE NIECE. I INFORMED HER THAT THE HOSPITALIST CANNOT GIVE THE ORDER FOR TERMINAL WEAN, IT HAS TO BE THE PRIMARY MD. I STATED THAT WHEN THE PRIMARY MD COMES IN THE MORNING, WE'LL HAVE HER CALL THE NIECE . THE NIECE'S REQUEST IS THAT SHE BE HERE WHEN IT IS DONE. THE OTHER REQUEST OF THE NIECE IS THAT, IF SHE LASTS, SHE WOULD LIKE HER TRANSPORTED HOME. I FULLY EXPLAINED WHAT HAPPENS WHEN SOMEONE EXPIRES. THE NIECE WAS SAYING THAT THEY WOULD NEED A FEW DAYS TO MAKE ARRANGEMENTS.
--- NOTE | 2020-09-02 22:03 | NUR ---
RT NOTE VENT CHECK COMPLETED. PT TOLERATING SETTINGS WELL. NO CHANGES MADE. PT CR 134, RESP TX HELD AT THIS TIME.
--- NOTE | 2020-09-02 22:04 | NUR ---
GRAND MAL SEIZURE LASTING 20 SECONDS, ATIVAN GIVEN. KEPPRA INFUSING. AMIODARONE NGT GIVEN. HR 138. REPOSITIONED TO THE RIGHT SIDE. ORAL CARE DONE. HEELS OFF BED. SCDS ON. SINUS TACHYCARDIA WITHOUT ECTOPY
[2020-09-03] VITALS (86 sets, daily range): BP systolic 83–120; BP diastolic 45–84
--- NOTE | 2020-09-03 | NUR ---
ST OF 143 ALMOST CONSISTENT. NO ECTOPY. LUNGS CLEAR. ORAL CARE DONE. ABDOMEN SOFT. TUBE FEED RESIDUAL 2CC. INCREASED THE TUBE FEEDING TO 40CC/HR. IV SITE SHOWS NO REDNESS OR SWELLING. JESSICA AREA CLEAN.ALL PULSES PALPABLE. NO EDEMA. HEELS OFF BED. NOT MOVING. EYES OPEN OCCASIONALLY. TYLENOL GIVEN FOR TEMPERATURE OF 100.2
[2020-09-03] MEDS: ACETAMINOPHEN 325 MG TAB PO PRN (00:23)
[2020-09-03] MEDS: IPRATROPIUM BROM 0.5 MG/2.5ML INH SOL NEB SCH ×4 (02:00→14:00)
[2020-09-03] MEDS: ALBUTEROL SULF 2.5 MG/0.5ML(0.5%) NEB SOLN NEB SCH ×4 (02:00→14:00)
--- NOTE | 2020-09-03 02:00 | NUR ---
HR HAS VARIED BETWEEN 117 AND 149
--- NOTE | 2020-09-03 02:07 | NUR ---
RT NOTE VENT CHECK COMPLETED. PT TOLERATING SETTINGS WELL. NO CHANGES MADE. RESP MEDS HELD AGAIN DUE TO ELEVATED CR OF 137.
--- NOTE | 2020-09-03 04:00 | NUR ---
NO CHANGE IN STATUS. SINUS TACHYCARDIA 120-142, NO ECTOPY. LARGE AMOUNT OF ORAL SECRETIONS. VALENTINO. ONLY ONE SEIZURE TONIGHT SO FAR.
[2020-09-03] MEDS: ACCU-CHEK COMFORT CURVE STRIP VI SCH ×4 (05:35→18:08)
[2020-09-03] MEDS: InsuLIN REG 1unit/0.01ml Soln (100units/ml) SC SCH ×4 (05:35→18:00)
--- NOTE | 2020-09-03 07:30 | NUR ---
REPORT REPORT RECEIVED FROM LUDMILA PATEL, CARE ASSUMED.
--- NOTE | 2020-09-03 08:00 | NUR ---
INITIAL CONTACT PT IS ORALLY INTUBATED ON MECHANICAL VENTILATION. PT ATTEMPTED TO OPEN EYES WITH VERBAL STIMULI. PT NOT MOVING EXTREMITIES AT THIS TIME. NO DISTRESS NOTED. PUPILS EQUAL AND REACTIVE TO LIGHT. COUGH AND GAG PRESENT. PULSES PALPABLE BILATERALLY. SCD'S ON BILATERAL LOWER EXTREMITIES. VS STABLE. SINUS TACHYCARDIA 120-130'S NOTED ON BEDSIDE MONITOR. TOLERATING VENTILATION AT THIS TIME, OXYGEN SATURATION 100%. THICK ORAL SECRETIONS PRESENT. BITE BLOCK IN PLACE. ANDRADE CATHETER PRESENT AND SECURED BELOW BLADDER. VAGINAL PROLAPSE PRESENT. MULTIPLE SCARS ALL OVER BODY. PT REPOSITIONED ON SIDE. ALL EXTREMITIES OFF LOADED ON PILLOWS. BED LOCKED IN LOWEST POSITION, ALARMS IN PLACE. WILL CONTINUE TO MONITOR.
--- NOTE | 2020-09-03 08:10 | NUR ---
TEMPERATURE 100.0 RECTAL TEMPERATURE, ICE PACKS APPLIED AND COOLING MEASURES INITIATED.
[2020-09-03] MEDS: AMIODARONE HCL 200 MG TAB PO SCH ×2 (09:36→22:00)
[2020-09-03] MEDS: FAMOTIDINE (10MG/ML) 2ML VL IV SCH (09:36)
[2020-09-03] MEDS: ENOXAPARIN SOD 80 MG/0.8ML SYRINGE SC SCH ×2 (09:36→22:37)
[2020-09-03] MEDS: cefTRIAXone 1GM/50ML D5W 50 ML IV SCH (09:36)
--- NOTE | 2020-09-03 09:53 | NUR ---
MD VISIT DR.TANJAVOUR HAUSER AT BEDSIDE. MD AWARE FAMILY WOULD LIKE TO PERFORM COMPASSIONATE WEANING TODAY BUT WOULD LIKE TO BE CONTACTED FIRST. MD WILL CONTACT FAMILY AND PLACE ORDERS. NOTIFIED MD THERE ARE NO CXR OR LABS TODAY. NO ORDERS RECEIVED AT THIS TIME. WILL CONTINUE TO MONITOR.
[2020-09-03] MEDS: AZITHROMYCIN 500MG/ 250ML 250 ML IV SCH (09:57)
--- NOTE | 2020-09-03 11:00 | NUR ---
CONTACT PT DONNA CALLED FOR UPDATE. PASSWORD PROVIDED. AWAITING MD TO CALL AND DISCUSS TERMINAL WEAN.
--- NOTE | 2020-09-03 11:20 | NUR ---
Nutrition Followup Notes Wt: 73.6 kg Pt was intubated sedated with no family by bedside. pt is currently NPO on EN feeds with Jevity 1.2 @ 40 ml/hr providing 1152 kcals and 52 gm proteins. Est Energy needs: 1353-2749 kcals (20-23 kcal/kgBW), Est Protein needs: 59-74 gms/day (0.8-1.0 gm/kgBW). Will continue to monitor and reassess prn. LABS: No new labs today 09/01: BUN 36 H CREAT 1.65 H GLU 129 H GI: Pt had 200 ml BM today per RN doc BS: 12 high risk. Refer to wound assessment report for full details. PES: 1) Increased nutrient needs aeb pt is sedated, intubated, NPO r/t pt with no PO intake 2) Overweight aeb 141% IBW and BMI of 28.7 kg/m2 r/t energy intake in excess of energy needs Comments: will continue to monitor NPO status, EN tolerance skin status. F/u high 2-3 days Rec: 1) Advance EN support with Jevity 1.2 @ 55ml/hr goal rate per MD approval. 2) Gradually advance pt to an oral Cardiac 2gNa,lowfat,lowchol diet when feasible per MD approval. 3) Continue current plan of care
[2020-09-03] MEDS: PROPOFOL 100 ML IV SCH (12:15)
[2020-09-03] MEDS: MIDAZOLAM DRIP 50 mg/50mL 50 ML IV SCH (12:45)
[2020-09-03] MEDS: DexMEDEtomidine 400 MCG in D5W 5% 96 ML IV SCH (12:47)
[2020-09-03] MEDS: NOREPINEPHRINE 8 MG/250ML KIT 250 ML IV SCH (12:47)
--- NOTE | 2020-09-03 13:38 | NUR ---
MD HAYLEY DIEHL CALLED PATIENT FAMILY AND DISCUSSED PLAN OF CARE. FAMILY WOULD LIKE TO TERMINAL WEAN TODAY. ORDERS OBTAINED FOR MORPHINE, ATIVAN, AND TERMINAL WEAN WHEN FAMILY IS AT BEDSIDE.
[2020-09-03] MEDS ORDERED: LORazepam 2MG/ML-1ML VIAL IV PRN (13:45)
--- NOTE | 2020-09-03 13:57 | NUR ---
MASS LEFT UPPER CHEST MASS NOTED. NO VS CHANGES, ECCHYMOSIS OR CREPITUS. NO INJURY OR TRAUMA NOTED TO AREA. NOTIFIED OF NEW FINDINGS. MD AWARE. NO INTERVENTION ORDERED AT THIS TIME. COMFORT CARE CONTINUED.
--- NOTE | 2020-09-03 15:23 | NUR ---
MD VISIT ASSESSING PATIENT AT BEDSIDE.
--- NOTE | 2020-09-03 16:20 | NUR ---
FAMILY PATIENT NIECE AND FAMILY MEMBERS AT BEDSIDE. REQUESTING TERMINAL WEAN AT THIS TIME. RT PAGED TO BEDSIDE.
--- NOTE | 2020-09-03 16:24 | NUR ---
TERMINAL WEAN Extubation order received by for terminal wean, RT at bedside. Patient extubated with no problems, patient tolerated well. Patient placed on 2 L nasal cannula. Family present at bedside.
--- NOTE | 2020-09-03 16:25 | NUR ---
Respiratory note: PT TERMINALLY EXTUBATED AT THIS TIME. PLACED ON 2L NC. FAMILY AND RN AT BEDSIDE.
--- NOTE | 2020-09-03 17:30 | NUR ---
ECCHYMOSIS INITIALLY THERE WAS SOME ECCHYMOSIS NOTED ON RIGHT LATER CHEST NEAR AXILLARY NEAR MASS. THE SIZE OF THE ECCHYMOSIS AND INCREASED TO A LARGE SIZE. MASS IS UNCHANGED IN SIZE.
--- NOTE | 2020-09-03 18:40 | NUR ---
ELIMINATION/CARES COMPLETE LINEN CHANGE AND GOWN CHANGE COMPLETE. PATIENT HAD LARGE, LIQUID, BROWN BOWEL MOVEMENT. PT REPOSITIONED IN BED. ORAL CARE COMPLETED. ALARMS IN PLACE. NO DISTRESS NOTED.
--- NOTE | 2020-09-03 19:40 | NUR ---
REPORT REPORT GIVEN TO ELA PATEL, CARE ENDORSED.
--- NOTE | 2020-09-03 20:05 | NUR ---
PTS FAMILY AT BEDSIDE
--- NOTE | 2020-09-03 20:30 | NUR ---
PT HAD LARGE, LOOSE BM. CLEANED APPROPRIATELY AND RUSSELL CHANGE DONE.
[2020-09-03] MEDS: MORPHINE SULFATE 4 MG/ML SYR/VIAL IV PRN (20:46)
--- NOTE | 2020-09-03 21:10 | NUR ---
PTS DONNA ARRIAZA MADE THIS RN AWARE THAT THE DATE DOCUMENTED FOR THIS PATIENT IS INCORRECT. ADMITTING CALLED AND MADE THEM AWARE THAT PATIENT'S BIRTHDAY IS January.
--- NOTE | 2020-09-03 21:55 | NUR ---
PTS FAMILY LEFT BEDSIDE. THEY REQUESTS TO BE CALLED IF PT "BECOMES CLOSER TO " PER DONNA ARRIAZA.
--- NOTE | 2020-09-03 22:32 | NUR ---
NEW WRISTBAND PLACED ON PT WITH CORRECT BIRTHDAY.
[2020-09-04] VITALS (23 sets, daily range): BP systolic 92–113; BP diastolic 47–62
[2020-09-04] MEDS: MORPHINE SULFATE 4 MG/ML SYR/VIAL IV PRN ×3 (00:18→15:29)
[2020-09-04] MEDS: ACCU-CHEK COMFORT CURVE STRIP VI SCH ×3 (00:18→12:40)
--- NOTE | 2020-09-04 03:34 | NUR ---
PT CARE GAVE PT BED BATH. NEW GOWN PLACED ON PT. ORAL CARE DONE AND PT TURNED.
--- NOTE | 2020-09-04 05:17 | NUR ---
SPOKE WITH ARSALAN, PTS FAMILY. UPDATED HER ON PT CONDITION, WITH NO NEW CHANGES SINCE SHE WAS HERE AT BEDSIDE. DID MAKE HER AWARE THERE ARE TWO OF THE PATIENTS RINGS HERE THAT SHE MAY WANT TO PAPER RECLAIMING MACHINE OPERATOR NEXT TIME SHE COMES TO VISIT. SHE ASKS TO BE CALLED WHEN PT IS TRANSFERRED TO THE FLOOR AND IF THERE IS A CHANGE IN PT CONDITION.
[2020-09-04] MEDS: InsuLIN REG 1unit/0.01ml Soln (100units/ml) SC SCH ×3 (05:44→12:40)
--- NOTE | 2020-09-04 08:45 | NUR ---
DR HORNE VISITS AND EXAMINES PATIENT - STATES WILL SIGN OFF OF PATIENT'S CASE.
[2020-09-04] MEDS: AMIODARONE HCL 200 MG TAB PO SCH (10:00)
[2020-09-04] MEDS: FAMOTIDINE (10MG/ML) 2ML VL IV SCH (10:19)
[2020-09-04] MEDS: cefTRIAXone 1GM/50ML D5W 50 ML IV SCH (10:19)
[2020-09-04] MEDS: ENOXAPARIN SOD 80 MG/0.8ML SYRINGE SC SCH (10:19)
[2020-09-04] MEDS: AZITHROMYCIN 500MG/ 250ML 250 ML IV SCH (10:20)
--- NOTE | 2020-09-04 11:12 | NUR ---
PATIENT'S DONNA ARRIAZA PHONES - UPDATED ON PATIENT CONDITION - VERBALIZERS UNDERSTANDING.
--- NOTE | 2020-09-04 11:40 | NUR ---
DR JOHNSON VISITS AND EXAMINES PATIENT - ORDERS RECEIVED FOR DNR/COMFORT CARE AFTER SHE SPOKE TO PATIENT'S NIECE ARSALAN-PAPER ORDER PLACED ON CHART.
--- NOTE | 2020-09-04 19:25 | NUR ---
Report received from JORGE Red. Patient down-graded to Med-Surg pending hospital bed assignment. Patient Code Status DNR Comfort Care. Addendum: 09/04/20 at 1945 by Ritesh Ochoa RN Will continue with POC; and, will continue to monitor VS and clinical status.
--- NOTE | 2020-09-04 20:06 | NUR ---
Notification of MD hospital bed assignment: 203. Will facilitate transfer to room.
--- NOTE | 2020-09-04 20:33 | NUR ---
Report called to [facility] JORGE Mcmillan.
--- NOTE | 2020-09-04 20:49 | NUR ---
Patient family Nayana is called at [phone] and informed the patient, her aunt, will be transferred to room 203 with phone [phone]. Nayana is updated on current status. No further questions.
--- NOTE | 2020-09-04 22:15 | NUR ---
Patient transferred to MS bed. Patient transferred to room 203 via bed. VSS.
--- NOTE | 2020-09-04 22:18 | NUR ---
patient transferred from icu to room 203 Assumed care of patient,. No S/S of distress/SOB or pain. see interventions for assessment. call light within reach bed in low position. fall precautions in place. seizure precautions in place.
[2020-09-05 05:00] VITALS: BP 126/67
[2020-09-05] MEDS: MORPHINE SULFATE 4 MG/ML SYR/VIAL IV PRN ×2 (05:02→13:12)
--- NOTE | 2020-09-05 05:37 | NUR ---
jennifer rios called, password provided. updated gabriel on poc
[2020-09-05 06:42] LABS: Basophils # (auto) 0.1 10 ^3/uL (0-0.2); Basophils % (auto) 0.4 % (0.0-2.0); Eosinophils # (auto) 0.2 10 ^3/uL (0-0.8); Eosinophils % (auto) 1.4 % (0.0-7.0); Lymphocytes # (auto) 1.4 10 ^3/uL (0.4-5.4); Nucleated Red Blood Cells % 0.4 %
[2020-09-05 06:46] LABS: Hematocrit 21.9 % (36.0-46.0); Hemoglobin 7.2 g/dL (12.2-16.2); Lymphocytes % (auto) 9.9 % (10.0-50.0); Mean Corpuscular Hemoglobin 29.5 pg (28.0-32.0); Mean Corpuscular Hgb Conc. 32.8 g/dL (32.0-36.0); Monocytes % (auto) 7.1 % (0.0-12.0); Neutrophils # (auto) 11.7 10 ^3/uL (1.6-8.6); Neutrophils % (auto) 81.2 % (37.0-80.0); Platelet Count (auto) 490 10^3/uL (140-450); Red Blood Cells 2.44 10^6/uL (4.0-5.20); Red Cell Distribution Width 15.4 % (11.8-14.3); White Blood Cell 14.5 10^3/uL (4.4-10.8)
--- NOTE | 2020-09-05 07:05 | NUR ---
Opening Shift Note Assumed care of patient awake. Patient's baseline is unresponsive. Comfort measures in place. Seizure precautions in place. No S/S of distress/SOB or pain. Bed in lowest position, HOB elevated at least 30 degrees, call light is within reach. Will continue to monitor for changes Q1hr and PRN.
--- NOTE | 2020-09-05 07:05 | NUR ---
REPORT GIVEN TO ERIC PATEL.
[2020-09-05 08:45] VITALS: BP 119/71
--- NOTE | 2020-09-05 12:24 | NUR ---
Nutrition Followup Notes Wt: 71.6 kg Pt`s terminally weaned sleeping with no family by bedside. pt is currently NPO off EN Est Energy needs: 0101-2696 kcals (20-23 kcal/kgBW), Est Protein needs: 59-74 gms/day (0.8-1.0 gm/kgBW). Will continue to monitor and reassess prn. LABS: No new labs today 09/01: BUN 36 H CREAT 1.65 H GLU 129 H GI: Pt had 2 BM 09/03 per RN doc BS: 12 high risk. Refer to wound assessment report for full details. PES: 1) Increased nutrient needs aeb pt is sedated, intubated, NPO r/t pt with no PO intake 2) Overweight aeb 141% IBW and BMI of 28.7 kg/m2 r/t energy intake in excess of energy needs Comments: will continue to monitor NPO status, skin status. F/u high 2-3 days Rec: 1) Continue current plan of care
--- NOTE | 2020-09-05 12:30 | NUR ---
FAMILY MEMBER PRESENT AT BEDSIDE
[2020-09-05 12:47] VITALS: BP 120/75
--- NOTE | 2020-09-05 13:00 | NUR ---
DR LEMON CALLED REGARDING FAMILY MEMBER'S REQUEST FOR PATIENT TO BE PLACED ON HOSPICE AND DISCHARGED TODAY. ORDERS OBTAINED AND VERIFIED.
--- NOTE | 2020-09-05 13:15 | NUR ---
Contacted by nurse, Fermín, regarding daughters request to see SS. Daughter verbalizing understanding of pts decline and impending transition. Requesting information on her options for discharge, i.e. SNF vs home with hospice. Discussed with daughter that pt has [facility] and SNF placement would be skilled nursing under [facility]. SNF facilities have no skilled nursing beds for hospice patients. Daughter states she would like for pt to come to her home in [place] and has a hospice company in the area she would like to use. Contacted [facility] hospice ([phone]) and faxed clinical information. Pt accepted onto service and dme ordered for delivery to home. Transportation set up for 2:30/3pm. Daughter notified and verbalized understanding regarding d/c plan.
[2020-09-05 13:54] VITALS: BP 119/71
--- NOTE | 2020-09-05 14:33 | NUR ---
[facility]
--- NOTE | 2020-09-05 15:58 | NUR ---
Discharge instructions given as ordered to family member. All questions and concerns addressed. IV removed with catheter intact, pressure dressing applied. Telemetry unit returned to ICU. Patient removed from from via gurney with [facility] members with all personal belongings. No distress noted at time of departure.
== END 2020-09-05 15:58 | disposition hospice, home (50) | DRG 720 ==
LOC: EDBD 11:37 → ER 11:37 → EDBD 11:38 → OVERFLOW 11:38 → DOU IN ICU 15:13 → ICU WEST 08-28 01:46 → CENTRAL 09-04 22:18
PROVIDERS: ADMIT Hospitalist; ATTEND Internal Medicine Pulmonary Disease
PROC: 5A1955Z Respiratory Ventilation, Greater than 96 Consecutive Hours (ICD-10-PCS; principal; 2020-08-25)
DX: A41.9 Sepsis, unspecified organism (principal); J96.01 Acute respiratory failure with hypoxia; E43 Unspecified severe protein-calorie malnutrition; I46.9 Cardiac arrest, cause unspecified; K72.00 Acute and subacute hepatic failure without coma; J18.9 Pneumonia, unspecified organism; J90 Pleural effusion, not elsewhere classified; I26.93 Single subsegmental thrombotic pulmonary embolism without acute cor pulmonale; N17.0 Acute kidney failure with tubular necrosis; R65.21 Severe sepsis with septic shock; G93.1 Anoxic brain damage, not elsewhere classified; G93.41 Metabolic encephalopathy; E87.4 Mixed disorder of acid-base balance; I13.0 Hypertensive heart and chronic kidney disease with heart failure and stage 1 through stage 4 chronic kidney disease, or unspecified chronic kidney disease; E11.22 Type 2 diabetes mellitus with diabetic chronic kidney disease; I50.9 Heart failure, unspecified; E66.01 Morbid (severe) obesity due to excess calories; E87.1 Hypo-osmolality and hyponatremia; I47.1 Supraventricular tachycardia; D64.9 Anemia, unspecified; N39.0 Urinary tract infection, site not specified; E78.5 Hyperlipidemia, unspecified; F17.200 Nicotine dependence, unspecified, uncomplicated; G40.909 Epilepsy, unspecified, not intractable, without status epilepticus; I48.92 Unspecified atrial flutter; Z20.828 Contact with and (suspected) exposure to other viral communicable diseases; Z51.5 Encounter for palliative care; Z66 Do not resuscitate; I67.2 Cerebral atherosclerosis; J98.11 Atelectasis; N18.9 Chronic kidney disease, unspecified; K76.0 Fatty (change of) liver, not elsewhere classified; Z68.28 Body mass index [BMI] 28.0-28.9, adult; Z79.899 Other long term (current) drug therapy
CPT/HCPCS: 36415; 36600; 70450; 71045; 71275; 80048; 80053; 80061; 80202; 80307; 81001; 82565; 82728; 82805; 82962; 83036; 83605; 83735; 83880; 84484; 85025; 85379; 85610; 85730; 86141; 87040; 87070; 87081; 87086; 87205; 87426; 93005; 93306; 93886; 93970; 94002; 94003; 94640; 95819; G0378; J0696; J1815; J2250; J2543; J2704; J3480; J3490; J7060